=== PATIENT | male | born 1930 | race Caucasian/White ===

== ENCOUNTER 2016-07-06 10:15 | Inpatient (IN) | payer MEDICARE ==
[2016-07-06] MEDS ORDERED: Ondansetron TAB* 4 MG PO PRN (19:00)
[2016-07-06] MEDS ORDERED: Acetaminophen TAB* 325 MG PO PRN ×2 (19:00→19:04)
[2016-07-06] MEDS ORDERED: diPHENhydraMINE PO* 25 MG PO PRN (19:00)
[2016-07-06] MEDS ORDERED: Meclizine TAB* 12.5 MG PO PRN (19:03)
[2016-07-06] MEDS ORDERED: Melatonin (NF) 3 MG TAB PO PRN (21:08)
[2016-07-06] MEDS: Tamsulosin CAP* 0.4 MG PO SCH (21:24)
[2016-07-06] MEDS: traZODone TAB* 50 MG TAB PO PRN (21:26)
[2016-07-06] MEDS: Metoprolol Succinate XL TAB* 25 MG PO SCH (21:38)
[2016-07-06] MEDS ORDERED: NS 0.9% 500 ML* 500 ML IV ONE (23:15)
[2016-07-07 06:40] LABS: Hematocrit 25 % (42-52); Hemoglobin 8.5 g/dl (14.0-18.0); Mean Corpuscular HGB Conc 33 g/dl (31-36); Mean Corpuscular Hemoglobin 30 pg (27-31); Mean Corpuscular Volume 90 fL (80-94); Mean Platelet Volume 8 um3 (7.4-10.4); Red Blood Count 2.82 10^6/ul (4.0-5.4); Red Cell Distribution Width 17 % (10.5-15); White Blood Count 0.6 10^3/ul (3.5-10.8)
[2016-07-07 06:48] LABS: Comments Flag Yes
[2016-07-07 06:50] LABS: Add Diff/Slide Review? Manual Diff Added
[2016-07-07 06:51] LABS: BUN/Creatinine Ratio 25.8 (8-20); Calcium 8.7 mg/dL (8.6-10.3); EGFR African American 99.8 (>60); EGFR Non-African American 77.6 (>60); Magnesium 1.5 mg/dL (1.9-2.7); Potassium 4.6 mmol/L (3.5-5.0)
[2016-07-07] MEDS: Metoprolol Succinate XL TAB* 25 MG PO SCH ×2 (08:37→21:55)
[2016-07-07] MEDS: Omeprazole CAP* 20 MG PO SCH (08:37)
[2016-07-07] MEDS: TESTOSTERONE TOPICAL SCH (08:38)
[2016-07-07] MEDS ORDERED: Magnesium Sulf 4 GM/100 ML IV* 4,000 MG/100 ML BAG IVPB ONE (10:30)
[2016-07-07] MEDS ORDERED: Acetaminophen TAB* 325 MG PO ONE (13:00)
[2016-07-07] MEDS ORDERED: diPHENhydraMINE PO* 25 MG PO ONE (13:00)
[2016-07-07] MEDS: Atorvastatin* 10 MG TAB PO SCH (18:19)
[2016-07-07] MEDS: Tamsulosin CAP* 0.4 MG PO SCH (21:55)
[2016-07-07] MEDS: traZODone TAB* 50 MG TAB PO PRN (22:11)
[2016-07-08 08:08] LABS: Hematocrit 28 % (42-52); Hemoglobin 9.2 g/dl (14.0-18.0); Mean Corpuscular HGB Conc 34 g/dl (31-36); Mean Corpuscular Hemoglobin 30 pg (27-31); Mean Corpuscular Volume 91 fL (80-94); Mean Platelet Volume 9 um3 (7.4-10.4); Red Blood Count 3.03 10^6/ul (4.0-5.4); Red Cell Distribution Width 17 % (10.5-15); White Blood Count 0.9 10^3/ul (3.5-10.8)
[2016-07-08 08:10] LABS: Add Diff/Slide Review? Slide Review Added; Comments Flag Yes
[2016-07-08 09:04] LABS: Calcium 8.5 mg/dL (8.6-10.3); EGFR African American 91.8 (>60); EGFR Non-African American 71.4 (>60); Magnesium 1.8 mg/dL (1.9-2.7); Potassium 4.6 mmol/L (3.5-5.0)
[2016-07-08] MEDS: Allopurinol TAB* 300 MG PO SCH (10:26)
[2016-07-08] MEDS: Omeprazole CAP* 20 MG PO SCH (10:26)
[2016-07-08] MEDS: Metoprolol Succinate XL TAB* 25 MG PO SCH ×2 (10:26→22:35)
[2016-07-08] MEDS: TESTOSTERONE TOPICAL SCH (10:31)
--- NOTE | 2016-07-08 11:52 | RAD ---
HISTORY: Status post fall, chest pain COMPARISONS: CT dated June 09, 2016 VIEWS: 4, Frontal and oblique views of the left hemithorax. FINDINGS: There is diffuse osteopenia. There is a nondisplaced fracture of the left seventh rib, with probable nondisplaced fractures of the left eighth and ninth ribs. Pleural calcifications are noted. There is a probable small left apical pneumothorax. IMPRESSION: NONSPECIFIC FRACTURES OF THE LEFT HEMITHORAX WITH PROBABLE SMALL LEFT APICAL PNEUMOTHORAX. PRELIMINARY FINDINGS WERE DISCUSSED WITH LON, THE NURSE CARING FOR THE PATIENT AT APPROXIMATELY 1148 A.M. ON JULY 08, 2016.
[2016-07-08] MEDS: Atorvastatin* 10 MG TAB PO SCH (16:36)
--- NOTE | 2016-07-08 22:20 | DS ---
DISCHARGE SUMMARY: DATE OF ADMISSION: 07/06/16 DATE OF DISCHARGE: 07/08/16 PRINCIPAL DIAGNOSES: 1. Chest pain presumably secondary to severe anemia, chemotherapy induced. 2. Pancytopenia, chemotherapy induced. 3. Lung cancer history, undergoing active chemotherapy. OTHER PERTINENT HISTORY: Includes: 1. History of coronary artery disease. 2. Hyperlipidemia. 3. Hypertension. 4. Right leg DVT in June 2016. 5. History of gout. 6. Benign prostatic hypertrophy. DISCHARGE MEDICATIONS: Will include: 1. Flomax 0.4 mg p.o. at bedtime. 2. Zocor 20 mg daily. 3. Zofran 4 mg every 4 hours as needed for nausea. 4. Prilosec 20 mg p.o. daily. 5. Toprol-XL 25 mg p.o. b.i.d. 6. Antivert 12.5 mg p.o. t.i.d. as needed for dizziness. 7. Allopurinol 300 mg p.o. daily. 8. Tylenol as needed for fever or pain 650 mg every 4 hours. 9. The patient also takes melatonin [id number] at 3 mg p.o. at bedtime as needed 10. 50 mg topically daily as needed. HOSPITAL COURSE: The patient was admitted to the hospital with pancytopenia secondary to chemotherapy and found to be anemic for which he required 3 units of packed red blood cells. In addition, he had a platelet count of less than 50 at 29 and had been on Lovenox therapy for his DVT, which was discontinued. In addition, he was neutropenic; however, had not developed any specific fever throughout the course of his stay with a maximum temperature of 99.4 and did not require any specific panculturing or antibiotic therapy. His vital signs remained stable and afebrile throughout the course of his stay and blood pressure was stable on the day of his discharge at 141/68, pulse rate 85, respiratory rate 18, O2 sat was 91, and he typically uses 2 L of oxygen nasal cannula at home. On the day of his discharge, the patient did report that he had left chest pain and it has been since he had his fall approximately 6 weeks ago, though it was worse on the day of his discharge. Rib x-rays were obtained on the left side and found to have 2 fractured ribs at the left 8th and 9th ribs with pleural calcifications noted. There was a left apical pneumothorax also reported, which necessitated a surgical review in consult to see if there were any surgical needs to intervene with this pneumothorax. I spoke briefly with Dr. Velez and Evangelist Ott, who felt that the pneumothorax at this point in time was stable and would need close observation. On the day of his discharge, the patient continues to be neutropenic with a white blood cell count escalating at 0.9, hemoglobin 9.2, and hematocrit 28, platelet count 23,000. We will continue to hold his Lovenox until his pancytopenia resolves from his chemotherapy. He will follow up on Wednesday for a repeat CBC and nurse visit. In addition, he will follow up in [address] Abdullahi, status post chemotherapy or sooner if needed. The patient has been instructed to call with any fever or chills as he is pancytopenic. We also arranged for him to have nurse visit on a daily basis secondary to being 87 years old and he continues to remain pancytopenic until his blood counts return. KASSANDRA SILVER [id number]/[facility] #: [id number] ZAC
[2016-07-08] MEDS: traZODone TAB* 50 MG TAB PO PRN (22:35)
[2016-07-08] MEDS: Tamsulosin CAP* 0.4 MG PO SCH (22:35)
[2016-07-09] MEDS: TESTOSTERONE TOPICAL SCH (09:34)
[2016-07-09] MEDS: Metoprolol Succinate XL TAB* 25 MG PO SCH ×2 (09:34→22:34)
[2016-07-09] MEDS: Omeprazole CAP* 20 MG PO SCH (09:34)
[2016-07-09] MEDS: Allopurinol TAB* 300 MG PO SCH (09:34)
[2016-07-09 11:15] LABS: Hematocrit 26 % (42-52); Hemoglobin 8.8 g/dl (14.0-18.0); Mean Corpuscular HGB Conc 33 g/dl (31-36); Mean Corpuscular Hemoglobin 30 pg (27-31); Mean Corpuscular Volume 90 fL (80-94); Mean Platelet Volume 9 um3 (7.4-10.4); Red Blood Count 2.94 10^6/ul (4.0-5.4); Red Cell Distribution Width 17 % (10.5-15); White Blood Count 0.5 10^3/ul (3.5-10.8)
[2016-07-09 11:16] LABS: Comments Flag Yes
[2016-07-09 11:17] LABS: Add Diff/Slide Review? Slide Review Added
[2016-07-09] MEDS: Atorvastatin* 10 MG TAB PO SCH (17:10)
[2016-07-09] MEDS: traZODone TAB* 50 MG TAB PO PRN (22:34)
[2016-07-09] MEDS: Tamsulosin CAP* 0.4 MG PO SCH (22:34)
[2016-07-10 07:57] VITALS: BP 120/59
[2016-07-10] MEDS: Omeprazole CAP* 20 MG PO SCH (09:40)
[2016-07-10] MEDS: Metoprolol Succinate XL TAB* 25 MG PO SCH (09:40)
[2016-07-10] MEDS: Allopurinol TAB* 300 MG PO SCH (09:40)
[2016-07-10] MEDS: TESTOSTERONE TOPICAL SCH (09:40)
--- NOTE | 2016-07-10 11:09 | PN ---
Progress Note - Progress Note SOAP: Subjective: []Feeling OK, still weak and tired. States understanding of need for [facility] , though is frustrated. Denies pain, sore throat, worsening cough, fevers, night sweats, chills, and any wounds. Per pt. normal BMs and UO. Medications: Acetaminophen (Tylenol Tab*) 650 mg PO Q4H PRN PRN Reason: FEVER/PAIN Last Admin: 07/10/16 09:40 Dose: 650 mg Allopurinol (Zyloprim Tab*) 300 mg PO DAILY [facility] Last Admin: 07/10/16 09:40 Dose: 300 mg Atorvastatin Calcium (Lipitor*) 10 mg PO 1700 [facility] Last Admin: 07/09/16 17:10 Dose: 10 mg Meclizine HCl (Antivert Tab*) 12.5 mg PO TID PRN PRN Reason: DIZZINESS Last Admin: 07/06/16 21:23 Dose: 12.5 mg Melatonin (Melatonin (Nf)) 3 mg PO BEDTIME PRN PRN Reason: SLEEP Last Admin: 07/08/16 23:04 Dose: 3 mg Metoprolol Succinate (Toprol Xl Tab*) 25 mg PO BID [facility] Last Admin: 07/10/16 09:40 Dose: 25 mg Omeprazole (Prilosec Cap*) 20 mg PO DAILY [facility] Last Admin: 07/10/16 09:40 Dose: 20 mg Ondansetron HCl (Zofran Tab*) 4 mg PO Q4H PRN PRN Reason: NAUSEA/VOMITING Tamsulosin HCl (Flomax Cap*) 0.4 mg PO BEDTIME [facility] Last Admin: 07/09/16 22:34 Dose: 0.4 mg Testosterone (Androgel (Nf)) 50 mg TOPICAL DAILY [facility] Last Admin: 07/10/16 09:40 Dose: Not Given Trazodone HCl (Desyrel Tab*) 50 mg PO BEDTIME PRN PRN Reason: SLEEP Last Admin: 07/09/16 22:34 Dose: 50 mg Objective: [] Vital Signs Temp Pulse Resp BP Pulse Ox 98.4 F 82 16 120/59 94 07/10/16 07:30 07/10/16 07:30 07/10/16 07:30 07/10/16 07:30 07/10/16 07:30 A&Ox3, EOMI, PERRLA HRR, murmur noted LS clear bilat., resp. even and non-labored ++BS, abd. soft and non-tender +PP=bilat., no edema noted Laboratory Results - last 24 hr 07/09/16 10:00 WBC 0.5 L RBC 2.94 L Hgb 8.8 L Hct 26 L MCV 90 MCH 30 MCHC 33 RDW 17 H Plt Count 18 L MPV 9 Neut % (Auto) 1.6 L Lymph % (Auto) 84.1 H Dade % (Auto) 9.3 H Eos % (Auto) 4.8 Baso % (Auto) 0.2 Absolute Neuts (auto) 0 L Absolute Lymphs (auto) 0.4 L Absolute Monos (auto) 0 Absolute Eos (auto) 0 Absolute Basos (auto) 0 Absolute Nucleated RBC Not Reportable Nucleated RBC % Not Reportable Labs today pending. Assessment: []85 yo with SCLC s/p 3 cycles of Carboplatin AUC 6 D1 and Etoposide 100 mg/m2 D -3 ([id number]) admitted 3 days ago with pancytopenia and significant weakness. Slow improvement s/p 1 unit PRBC, however significant weakness requiring rehabilitation. He still has pancytopenia but without fevers or bleeding and is ready for d/c to rehab. Plan: []1. Weakness: d/c to subacute rehab, today if possible 2. SCLC: chemotherapy to due 07/15, however will delay x1 week and f/u with Dr. Abdullahi 07/20 to determine if tx. can resume with C4 with dose reductions. 3. Pancytopenia: check labs today prior to d/c to determine need for transfusion , neutropenic and bleeding precautions required.
[2016-07-10 11:25] LABS: Hematocrit 27 % (42-52); Hemoglobin 9.1 g/dl (14.0-18.0); Mean Corpuscular HGB Conc 34 g/dl (31-36); Mean Corpuscular Hemoglobin 31 pg (27-31); Mean Corpuscular Volume 91 fL (80-94); Mean Platelet Volume 11 um3 (7.4-10.4); Red Blood Count 2.97 10^6/ul (4.0-5.4); Red Cell Distribution Width 16 % (10.5-15); White Blood Count 0.7 10^3/ul (3.5-10.8)
[2016-07-10 11:27] LABS: Add Diff/Slide Review? Slide Review Added; Comments Flag Yes
--- NOTE | 2016-07-11 07:27 | DS ---
DISCHARGE SUMMARY: DATE OF ADMISSION: 07/07/16 He was seen on 07/06/16 for OBV, full admit on 07/07/16. DATE OF DISCHARGE: 07/10/16 DISCHARGE DIAGNOSES: 1. Pancytopenia: Secondary to chemotherapy. 2. Weakness: Likely deconditioning related to chemotherapy and pancytopenia. 3. 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 4. Coronary artery disease: Stable. 5. Benign prostatic hypertrophy: On Flomax. 6. Hypertension: Stable on current meds. DISCHARGE MEDICATIONS: 1. Trazodone 50 mg p.o. q.h.s. p.r.n. sleep. 2. Flomax 0.4 mg p.o. q.h.s. 3. Omeprazole 20 mg p.o. daily. 4. Acetaminophen 650 mg p.o. q.4 hours p.r.n. pain or fever. *Call for any fever*. 5. Simvastatin 20 mg p.o. q. 5 p.m. 6. Meclizine 12.5 mg p.o. t.i.d. p.r.n. dizziness. 7. Metoprolol 25 mg p.o. b.i.d. 8. Allopurinol 300 mg p.o. daily. 9. Ondansetron 4 mg p.o. q.4 hours p.r.n. nausea or vomiting. 10. *Lorazepam on hold due to low platelets*. DISCHARGE SUMMARY: Please see admission note for full H and P; however, briefly, Mr. Mcgregor is well- known to our service due to his unfortunate diagnosis of small- cell lung cancer. He has received a total of three cycles of carbo/etoposide. Following the second cycle, he did require an admission f or febrile neutropenia related to pneumonia. Plan at that time was for 20% dose reduction; however, he received full dose with cycle 3 and had subsequent pancytopenia. He was seen in the office on 0 07/06/16 in followup to treatment on 06/24/16 through 06/26/16. While in the office, he was very weak with orthostatic hypotension. Minimal improvement with normal saline bolus. He had no obvious inf ections at that time and did not develop any fevers. However, with need for transfusions and his si gnificant weakness, a decision was made for an admission to the hospital. Over the next 3 days, dur ing his inpatient stay, Mr. Mcgregor remained neutropenic, but without fevers. He developed no signs o r symptoms of infection and his monitoring cultures done in the office were all negative. During admission, he received a total of one single-donor pack platelets and 3 units of packed red blood cells. Today, Mr. Mcgregor feels well and has no specific complaints. During this admission, Mr. Gertrude pantoja received a rib x-ray on the due to point tenderness and complaint of pain along the left ribs . This revealed a small pneumothorax. It was evaluated by Surgery and felt not to require interven tion. Plan initially was for Mr. Mcgregor to go home; however, with workup for discharge it was found that Mr. Mcgregor is extremely weak and he did not pass a PT evaluation. Plan has been made, therefore , for Mr. Mcgregor to go to a intermediate facility for subacute rehab. He has been offered a bed a [facility] and is agreeable to this. He is frustrated at his need, but understands his weakness an d deconditioning related to chemotherapy. Mr. Mcgregor will be discharged this afternoon to [facility] with plan for followup with Dr. Abdullahi on 07/20/16. Plan of care was review ed with Mr. Mcgregor who denies further questions and states good understanding. He had labs done toda y which showed improvement in his counts, very slow rise in his neutropenia, and stable thrombocytop enia, without bleeding. He will be instructed on neutropenic precautions as well as bleeding precau tions, as well as the staff at intermediate [facility] regarding the same issues. He will have rep eat labs in one week on 07/17/16, and followup as previously mentioned. TIME SPENT: Greater than 40 minutes were spent, with greater than 50% in face-to- face counseling. HAMMAD MCKINNON, OSCAR [id number]/[facility] #: [id number]
== END 2016-07-10 14:45 | DRG 809 ==
LOC: MED 10:15 → INTOOBSV 18:41 → MED 18:41 → OBSVTOIN 07-07 10:15
PROVIDERS: ADMIT Internal Medicine Hematology & Oncology; ATTEND Internal Medicine Hematology & Oncology
PROC: 30233N1 Transfusion of Nonautologous Red Blood Cells into Peripheral Vein, Percutaneous Approach (ICD-10-PCS; principal; 2016-07-07)
PROC: 30233R1 Transfusion of Nonautologous Platelets into Peripheral Vein, Percutaneous Approach (ICD-10-PCS; 2016-07-07)
DX: D61.810 Antineoplastic chemotherapy induced pancytopenia (principal); C34.90 Malignant neoplasm of unspecified part of unspecified bronchus or lung; S27.0XXA Traumatic pneumothorax, initial encounter; S22.32XA Fracture of one rib, left side, initial encounter for closed fracture; T45.1X5A Adverse effect of antineoplastic and immunosuppressive drugs, initial encounter; Y92.9 Unspecified place or not applicable; R62.7 Adult failure to thrive; Z88.8 Allergy status to other drugs, medicaments and biological substances; N40.0 Benign prostatic hyperplasia without lower urinary tract symptoms; I25.10 Atherosclerotic heart disease of native coronary artery without angina pectoris; E78.5 Hyperlipidemia, unspecified; I10 Essential (primary) hypertension; Z86.718 Personal history of other venous thrombosis and embolism; M10.9 Gout, unspecified; W19.XXXA Unspecified fall, initial encounter
CPT/HCPCS: 1036F; 36415; 36592; 80048; 80053; 83735; 85025; 85060; 86850; 86900; 86901; 86905; 86922; 94760; 96360; 96361; 99212; 99214; 99232; 99239; A9270-GY; G0378; G0463; G8427; J3475; P9035; P9040

== ENCOUNTER 2016-11-09 09:08 | Inpatient (IN) | payer MEDICARE ==
[2016-11-09] MEDS ORDERED: NS 0.9% 1000 ML* 1,000 ML IV ONE (09:54)
[2016-11-09 10:34] LABS: Hematocrit 25 % (42-52); Hemoglobin 8.3 g/dl (14.0-18.0); Mean Corpuscular HGB Conc 33 g/dl (31-36); Mean Corpuscular Hemoglobin 33 pg (27-31); Mean Corpuscular Volume 100 fL (80-94); Mean Platelet Volume 9 um3 (7.4-10.4); Red Blood Count 2.53 10^6/ul (4.0-5.4); Red Cell Distribution Width 16 % (10.5-15); White Blood Count 11.4 10^3/ul (3.5-10.8)
[2016-11-09 11:05] LABS: Albumin 2.9 g/dL (3.2-5.2); BUN/Creatinine Ratio 43.4 (8-20); EGFR African American 68.2 (>60); EGFR Non-African American 53.1 (>60); Globulin 2.7 g/dL (2-4); Potassium 4.8 mmol/L (3.5-5.0); Total Bilirubin 0.4 mg/dL (0.2-1.0); Total Protein 5.6 g/dL (6.4-8.9)
[2016-11-09] MEDS ORDERED: Iodixanol* (CONTRAST) 320 MG/ML 100 ML SDV IV ONE (12:13)
--- NOTE | 2016-11-09 13:03 | RAD ---
INDICATION: Chest pain. Short of breath. Evaluate for pulmonary embolus. Lung carcinoma. COMPARISON: CT chest abdomen August 10, 2016 TECHNIQUE: Axial source images were obtained from the thoracic inlet to the hemidiaphragms following administration of 69 mL Visipaque [address] angiographic technique was utilized. Coronal and sagittal reconstructed images were acquired. CHEST FINDINGS: Neck/thyroid: The visualized neck to include the thyroid appear normal. Chest wall: There are no acute abnormalities of the bony thorax or chest wall. There is no supraclavicular, infraclavicular, or axillary lymphadenopathy. Lungs : There are now lung parenchymal metastasis in the lingula and left lung base measuring up to 2.6 cm. There are smaller pulmonary parenchymal masses in the left upper lobe. Extensive pleural and diaphragmatic plaques are compatible with prior occupational exposure. There are chronic interstitial changes. Cardiomediastinal structures: There is no CT evidence of acute pulmonary embolic disease. The heart is enlarged with a mild interval increase in size. There are coronary artery calcifications. There is no pericardial effusion. There is extensive, confluent mediastinal adenopathy with a conglomerate lymph node mass in the aorticopulmonary window measuring up to 6.2 cm whereas formerly there is a 1.7 cm aorticopulmonary window lymph node Pleura : Pleural plaques as noted above. There are also broad-based [place] parenchymal lesions. Other: Early arterial phase imaging shows a least one new hepatic lesion near the dome measuring 1.7 cm consistent with a metastasis. There are likely additional lesions.. IMPRESSION: 1. No CT evidence of acute pulmonary embolic disease. 2. There are now pulmonary parenchymal metastasis. 3. Extensive, progressive, confluent mediastinal lymphadenopathy. 4. Hepatic metastasis. 5. Calcified pleural and diaphragmatic lesions consistent with prior occupational exposure.
[2016-11-09] MEDS ORDERED: Acetaminophen TAB* 325 MG PO PRN (13:10)
[2016-11-09] MEDS ORDERED: Pantoprazole IV* 40 MG IV ONE (13:10)
[2016-11-09] MEDS ORDERED: Ondansetron INJ* 2 MG/ML VIAL IV PRN (13:10)
[2016-11-09] MEDS ORDERED: NS 0.9% 1000 ML* 1,000 ML IV SCH (13:15)
[2016-11-09] MEDS ORDERED: Norepinephrine 16MCG/ML IVPRE* 4,000 MCG/250 ML BAG IV ONE (14:11)
[2016-11-09] MEDS ORDERED: Octreotide Acetate* 50 MCG in NS 0.9% 50 ML* 50 ML IVPB ONE (14:13)
[2016-11-09] MEDS: Pantoprazole IV* 80 MG in NS 0.9% 250 ML* 250 ML IVPB SCH ×2 (14:33→23:43)
[2016-11-09 14:36] LABS: Comments Flag Yes; Hematocrit 16 % (42-52)
[2016-11-09 14:39] LABS: Hemoglobin 5.4 g/dl (14.0-18.0)
[2016-11-09] MEDS ORDERED: NS 0.9% 1000 ML* 3,000 ML IV ONE (15:28)
[2016-11-09] MEDS ORDERED: fentaNYL* 50 MCG/ML 2 ML VIAL (100 MCG VIAL) ONE (15:39)
[2016-11-09] MEDS ORDERED: Midazolam* 1 MG/ML 10 ML VIAL (10 MG) ONE (15:39)
--- NOTE | 2016-11-09 16:33 | HP ---
HISTORY AND PHYSICAL: DATE OF ADMISSION: 11/09/16 PRIMARY CARE PROVIDER: Dr. Goodrich. ATTENDING PHYSICIAN WHILE IN THE HOSPITAL: Dr. Valadez* (this report is being dictated by Easton Casas NP) CHIEF COMPLAINT: 1. Weakness, not feeling well. 2. Dyspnea on exertion. HISTORY OF PRESENT ILLNESS: Mr. Mcgregor is an 86-year-old male patient who comes into the ER today stating that he in the last couple of days has been feeling weak, really fatigued. He had been feeling quite well after finishing up his chemo back in June. Unfortunately last night, he noticed a black tarry stool x1 but he really was not sure what to make of it. He actually took some Aleve yesterday and the day before because he had been aching, not really feeling well and he thought may be this would help him. He denied any fevers or chills or any nausea or vomiting. He states that he was not having any chest discomfort but he states that his stomach just felt off. He states that he took some again Aleve, which he normally does not take routinely and he came into the hospital to be evaluated. In the ED here, it was noted that he appeared to have tarry stools in addition to this but he also appeared to be a little bit more anemic, so we were asked to evaluate for admission. PAST MEDICAL HISTORY: Significant for: 1. Coronary artery disease. 2. Aortic stenosis. 3. Hypertension. 4. History of MD. 5. Skin cancer. 6. Gout. 7. Arthritis. 8. History of lung cancer. PAST SURGICAL HISTORY: 1. He has had a CABG. 2. He has had a cardiac catheterization. 3. Hernia repair. HOME MEDICATIONS: According to the list that he gave us includes, 1. Flomax 0.8 mg p.o. at bedtime. 2. Zocor 20 mg p.o. at 1700 hours. 3. Zofran 4 mg every 4 hours as needed. 4. Prilosec 20 mg daily. 5. Metoprolol 25 mg p.o. b.i.d. 6. Allopurinol 300 mg daily. 7. Tylenol 650 mg p.o. every 4 hours as needed. ALLERGIES TO MEDICATIONS: No known drug allergies. FAMILY HISTORY: His mother had a history of brain tumor. Father had a history of kidney cancer. SOCIAL HISTORY: He is a former smoker. He does not drink alcohol. His surrogate decision maker is his girlfriend Sharon. REVIEW OF SYSTEMS: There is no documented fever. He denied having any significant weight change. There was no double vision. He denies having any ear discharge. There was no rhinorrhea. No sore throat. No thyroid enlargement. He denied having any chest pain but there was dyspnea on exertion. He denies having any abdominal pain. No nausea now. No vomiting. No dysuria, no frequency. There was no loss of conscious. No pruritus. No skin ulcerations. Review of 14 systems was completed, all others negative. PHYSICAL EXAMINATION GENERAL: Mr. Mcgregor is an 86-year-old male patient. He is chronically ill- appearing. He is sitting in the ER stretcher. He does not appear to be in any acute distress. VITAL SIGNS: Blood pressure of 137/54, pulse of 75, his respirations were 18, O2 sat was 90-92%, his temperature was 97.8. HEENT: Head is atraumatic and normocephalic. Eyes: EOMs are intact. Sclerae anicteric and not pale. Throat: Oral mucosa appears to be dry. No oropharyngeal erythema. NECK: Supple. LUNGS: Clear to auscultation. No wheezes, rales or rhonchi. HEART: Sounds S1 and S2. Regular rate and rhythm. No murmurs, rubs, or gallops. ABDOMEN: Soft, flat, nontender. Bowel sounds present. RECTAL: Exam did reveal black tarry stool. EXTREMITIES: Pulses are 2+ throughout. Able to move all four extremities. 5/ 5 strength. SKIN: Intact. NEUROLOGIC: He is awake, alert, and oriented x3. Tongue midline. Records Management Director are equal. No gross focal deficits. LABORATORY DATA: Today revealed a WBC of 11.4, RBC of 2.53, hemoglobin of 8.3 , hematocrit of 25, platelet count of 120. The INR was 1.01, PTT of 29.0. Sodium is 137, potassium 4.8, chloride of 105, bicarb 28, BUN was 56, creatinine of 1.29, glucose 122, calcium 9.0, total bilirubin 0.14, AST 14, ALT 8, alk phos 51. He did have a EKG obtained today. EKG showed a normal sinus rhythm with LVH and T-wave inversions V4, 5, and 6. I reviewed it with previous EKG, he has had the inversions in the past like this but these T-wave inversions are a little bit more pronounced now. He certainly does have an intraventricular conduction delay. He had a CT of the chest done today, which showed no evidence of acute pulmonary embolic disease. There is no new pulmonary parenchymal metastasis, extensive progressive confluent mediastinal lymphadenopathy, hepatic metastasis, calcified pleural and diaphragmatic lesions consistent with a prior occupational exposure. Old medical records were reviewed. ASSESSMENT AND PLAN: Mr. Mcgregor is an 86-year-old male patient coming into the ER today with complaints of weakness, not feeling well, and black stools. On evaluation, there was concern for gastrointestinal bleed. He will be admitted under inpatient status, 1. Gastroesophageal bleed. I suspect this is an upper gastrointestinal bleed, probably from gastritis or possibly an ulcer. Dr. Jack is on the case. The plan at this point, I am actually going to hold off transfusion, his H and H is 8.3, I suspect this is probably going to go down more, but I want to get serial H and Hs, we will put 2 IVs and he has been typed and screened. We will give him PRBCs if he needs them. If he falls below 7, I probably again would go ahead and transfuse him if here. He does fall again with the next H and H, we will transfuse, which I am anticipating he may. Put him on a Protonix drip, 2 saline locks and we will follow him closely. He appears to be hemodynamically stable. His blood pressure is stable and he is not tachycardic. 2. Hypoxia. Again, it is noted that his O2 sats were like 90 to 92%. He has been feeling week. He does have a little bit of white count. I want to make sure there was not any underlying pneumonia, possibly pulmonary embolism although this is less likely. So, I did go ahead and ordered the CTA of the chest. He was to have a CTA of the chest tomorrow and it did ultimately reveal that he has new metastasis, which I did touch base with Dr. Alcala about, who will be evaluating the patient tomorrow but ultimately we need to address the acute issue of the gastrointestinal bleed and Dr. Alcala can followup with the new lung lesions. For his coronary artery disease, I am going to go ahead and continue his beta-suzanna but I have changed it to the immediate release form and we will monitor him. 3. Aortic stenosis. We need to monitor his blood pressure. I would like to kind of keep it on the higher side. 4. Hypertension. We will monitor. I did continue the Lopressor with hold parameters. 5. History of skin cancer. Follow up with primary. 6. Gout. Holding the allopurinol for now. 7. Arthritis, p.r.n. Tylenol is ordered. 8. History of lung cancer. Again with new CT findings. I did touch base with Dr. Alcala, he will touch base with Dr. Abdullahi tomorrow to evaluate, but most likely again we need to treat the underlying acute issue, which is the GI bleed and then this would need to be addressed in the outpatient setting. 9. DVT prophylaxis. He will be placed on SCDs. 10. Code status: Full code. 11. Fluid, electrolyte, nutrition. He will have clear liquid diet and n.p.o. after midnight. TIME SPENT: Time spent on the admission was approximately 60 minutes, greater than half time was spent [id number] with the patient obtaining my history and physical; other half the time was spent going over the plan of care with the patient and implementing the plan of care. I discussed the plan of care with my attending; Dr. Valadez; she is in agreement. EASTON CASAS NP CC: Dr. Goodrich; Dr. Alcala; Dr. Abdullahi; Dr. Jack* [id number]/[facility] [place] #: [id number] [facility] CENTERNicole
[2016-11-09] MEDS ORDERED: Atorvastatin* 10 MG TAB PO SCH (17:00)
[2016-11-09] MEDS: NS 0.9% 1000 ML* 1,000 ML IV SCH ×2 (17:30→22:36)
--- NOTE | 2016-11-09 17:31 | CONS ---
CONSULTATION: DATE OF CONSULT: 11/09/16 REASON FOR THE CONSULTATION: GI bleed and weakness. NARRATIVE: Mr. Garcia is an 86-year-old gentleman with a history of small cell lung carcinoma, a remote history of coronary artery disease, and CABG, as well as a history of peptic ulcer disease, who presents with progressive weakness and a finding of black stool in the last 24 hours. The patient states that lately he has been feeling generally well with a good appetite, but in the last 48 hours, has felt progressively weaker. This morning, he noticed black stools and for that reason presented to the emergency room at which time he was found to have guaiac- positive melenic stools and anemia with a hemoglobin of 8.3 ( his last hemoglobin from 20 days ago was 11.8). He has had no bowel movements in the ER, has been given IV fluids. He does have a history of peptic ulcer disease. He did undergo an upper endoscopy by Dr. Reese approximately a year and a half ago where multiple gastric ulcers were identified. Biopsies were benign and it was H. pylori negative. The patient does state that recently he has been taking some Aleve for overall pain. The patient also has been prescribed omeprazole; however, only takes it on an as-needed basis. PAST MEDICAL HISTORY: Includes: 1. Small cell lung cancer, status post chemotherapy several months ago. 2. Coronary artery disease, status post CABG about 20 years ago. 3. Hypertension. MEDICATIONS: His admission medicines were: 1. Allopurinol. 2. Metoprolol. 3. Omeprazole. 4. Zocor. 5. Flomax. REVIEW OF SYSTEMS: He denies any rectal bleeding, abdominal pain, dysphagia, heartburn. He denies any jaundice or back pain. PHYSICAL EXAM: He is a pleasant elderly gentleman, appearing comfortable and in no acute distress. Blood pressure is 129/50, heart rate is 83 and regular. He is not pale and is anicteric. His lungs sound clear. His cardiac exam reveals somewhat distant heart sounds, but a regular rhythm. Abdomen is soft without tenderness or distention and bowel sounds normoactive. Extremities reveal no edema. DIAGNOSTIC STUDIES/LAB DATA: Include a white count of 11.1, hemoglobin of 8.3, MCV of 100, platelet count of 120,000. INR 1.01. BUN of 56, creatinine of 1.29. Normal liver panel. The patient also underwent a chest CT angiogram, which I did review, demonstrating probable liver metastases and adenopathy with pulmonary lesions, which do seem new from July 2016 indicative of probable metastatic disease. IMPRESSION: Elderly gentleman with a history of small cell lung carcinoma with a recent CT suggesting progression of disease, now with what seems to be an upper GI bleed in the setting of NSAID use. He does have a prior history of peptic ulcer disease. We will treat him with IV Protonix, monitor his H and H, and plan on performing an upper endoscopy tomorrow which was discussed with the patient. The patient will discuss with his oncologist the findings of the new metastatic changes. CC: Dr. Abdullahi* [id number]/[facility] #: [id number] ZAC
[2016-11-09] MEDS ORDERED: Metoprolol Tartrate TAB* 25 MG PO SCH (21:00)
[2016-11-09] MEDS: Tamsulosin CAP* 0.4 MG PO SCH (21:26)
--- NOTE | 2016-11-10 04:39 | PRO ---
PROCEDURE NOTE: DATE OF PROCEDURE: 11/09/16 - inpatient, room #411-02 PROCEDURE: Upper endoscopy with Endoclip placement x5. MEDICINES USED: Versed 5 mg IV and fentanyl 50 mcg IV. NARRATIVE: Mr. Mcgregor is an 86-year-old gentleman with metastatic small cell lung cancer who presents with GI bleed. He has experienced black stools for 24 hours and had a mild anemia, while in the emergency room he developed high volume hematemesis, melena and did have a reduction in his blood pressure temporarily. He has been resuscitated with fluids and blood and is now undergoing an upper endoscopy in the ICU. I did place an NG tube and irrigated prior to the study to improve views. PROCEDURE IN DETAIL: After the procedure was discussed with the patient, risks and benefits were outlined, written consent was obtained. The patient was placed in the left lateral decubitus position and conscious sedation was administered. A therapeutic upper endoscope was placed down the oropharynx and advanced into the esophagus. The esophagus, stomach, and duodenum to the second to third portion were visualized, the patient tolerated the procedure well, and there were no immediate complications. FINDINGS: The esophagus was normal. There was no evidence of erosive change or varices. Upon entering the stomach, a large clot was seen up in the fundus region, but the remainder of the stomach was relatively clear of debris and clot. Views of the distal body and antrum were notable for normal mucosal pattern without a visible lesion. The pylorus was normal as well and the duodenal bulb to second to third portion had some old stain of blood, but no mucosal lesion. Our attention was then brought back to the area of the clot and we did perform extensive irrigation and suctioning using the BioVac suction device and was able to reduce the size of the clot, but not entirely displace it. I also changed the patient's position to try to have the clot migrate, but again, there were regions of the fundus that we could not adequately see. However, we did see 2 ulcerations, there was an approximately 8 mm ulcer in the proximal body of the stomach with some heaped up edges. It was not actively bleeding; however, there was clot associated with it. There was also a much smaller mucosal defect that looked like perhaps a small ulceration up in the cardia, which also was not actively bleeding. I placed 4 Endoclips on the larger ulcer and 1 on the smaller ulcer and it had good positioning and good endoscopic response. No other lesion was identified. CONCLUSION: Two ulcerations in the proximal aspect of the stomach as described above. Placement of clips applied. RECOMMENDATION: The patient will remain on IV PPI therapy. The usual location of these ulcers may imply them to be more malignant; however, he has been on NSAID's and that certainly could be the cause as well. He will be followed closely in the intensive care unit. CC: Dr. Goodrich; Dr. Abdullahi* [id number]/[facility] #: [id number] [facility]
[2016-11-10] MEDS: NS 0.9% 1000 ML* 1,000 ML IV SCH (05:10)
[2016-11-10 05:41] LABS: Hematocrit 28 % (42-52); Hemoglobin 9.1 g/dl (14.0-18.0); Mean Corpuscular HGB Conc 33 g/dl (31-36); Mean Corpuscular Hemoglobin 30 pg (27-31); Mean Corpuscular Volume 90 fL (80-94); Mean Platelet Volume 9 um3 (7.4-10.4); Red Blood Count 3.05 10^6/ul (4.0-5.4); Red Cell Distribution Width 20 % (10.5-15); White Blood Count 12.2 10^3/ul (3.5-10.8)
[2016-11-10 05:43] LABS: Add Diff/Slide Review? Slide Review Added; Comments Flag Yes
[2016-11-10 05:56] LABS: BUN/Creatinine Ratio 45.9 (8-20); Calcium 7.1 mg/dL (8.6-10.3); EGFR African American 93.7 (>60); EGFR Non-African American 72.9 (>60); Potassium 4.1 mmol/L (3.5-5.0)
[2016-11-10] MEDS: Pantoprazole IV* 80 MG in NS 0.9% 250 ML* 250 ML IVPB SCH (08:48)
[2016-11-10] MEDS: Omeprazole CAP* 20 MG PO SCH ×2 (11:04→21:35)
--- NOTE | 2016-11-10 11:59 | PN ---
Progress Note - Progress Note Note: CRITICAL CARE MEDICINE Date: 11/10/16 Time: 1030 SUBJECTIVE: Patient seen and examined. PHYSICAL EXAM: Vital Signs: Reviewed. Neurologic: awake, comm HEENT: pupils equal. Sclera anicteric. Trachea midline. Cardiovascular: distant, S1 S2 Respiratory: clear bl Abdomen: Soft, maybe mild distention; nt. Extremities: Warm. Access: left fem cvc LABS: Reviewed. IMAGING: Reviewed. MEDICATIONS: Reviewed. ASSESSMENT: 86 M Hemorrhagic shock - recovering. Acute UGIB, with ulcers s/p clipping Acute blood loss anemia - s/p 4 units prbc Metastatic lung ca, with new advancement MARGARET - improved PLAN: doing well. equilibrated post transfusions. no signs of bleeding. convert to bid ppi. GI to f/u. Start clears and advance as tolerating. Look to resume cardiac rx when equilibrated. Onc will f/u as well as re-spread quite concerning. Supportive and preventative care as ordered. SUP: ppi VTE prophylaxis: scds, oob Disposition: to floor later today if he does well with clears Code Status: Full presently Critical Care Time: 25min Jarrell Winters DO
--- NOTE | 2016-11-10 19:19 | ED ---
Ernesto Maurice Anna, scribed for Mario Spain MD on 11/09/16 at 0955 . GI/ HPI - HPI Summary HPI Summary: Patient is an 86 y/o male coming to [facility] presenting with the sudden onset of 3 episodes of melena that began today. The patient reports he has had worsening associated weakness and has had difficulty walking. Denies CP, SOB, and palpitations. He had a colonoscopy 4 years ago. He took an Aspirin and a few Aleve yesterday. His history is significant for HTN, HLD, [place], CABG. Patient medications were reviewed on this visit. - History of Current Complaint Chief Complaint: EDGIBleed Time Seen by Provider: 11/09/16 09:45 Stated Complaint: DIFF WALKING Hx Obtained From: Patient, Family/Conductor Sleeping Car - accompanied by his Onset/Duration: Still Present Timing: Intermittent Severity: Moderate Current Severity: Moderate Pain Intensity: 0 - Additional Pertinent History Primary Care Physician: ELIAS - Allergy/Home Medications Allergies/Adverse Reactions: Allergies Allergy/AdvReac Type Severity Reaction Status Date / Time No Known Allergies Allergy Verified 11/09/16 09:11 PMH/Surg Hx/FS Hx/Imm Hx Endocrine/Hematology History: Reports: Hx Anticoagulant Therapy - asa Denies: Hx Diabetes, Hx Systemic Lupus Erythematosus, Hx Thyroid Disease Cardiovascular History: Reports: Hx Angina, Hx Coronary Artery Disease - 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 PNA. Denies: Hx Asthma, Hx Chronic Obstructive Pulmonary Disease (COPD) GI History: Reports: Hx Gastroesophageal Reflux Disease - PRN MEDICATION FOR, Hx Hiatal Hernia - HX OF, Other GI Disorders - SEE BELOW UNDER COMMENTS History: Reports: Other Problems/Disorders - ENLARGE PROSTATE Denies: Hx Renal Disease Musculoskeletal History: Reports: Hx Arthritis, Hx Gout, Other Musculoskeletal History - GOUT CONTROL WITH MEDS Denies: Hx Rheumatoid Arthritis Sensory History: Reports: Hx Cataracts, Hx Contacts or Glasses Denies: Hx Hearing Aid Opthamlomology History: Reports: Hx Cataracts, Hx Contacts or Glasses Neurological History: Reports: Other Neuro Impairments/Disorders - VERTIGO- STATES COMES AND GOES Denies: Hx Headaches Psychiatric History: Reports: Hx Depression - NO MEDS Denies: Hx Anxiety - Cancer History Cancer Type, Location and Year: 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 lung cancer Hx Chemotherapy: Yes - 06/30/16 - Surgical History Surgery Procedure, Year, and Place: Appendectomy as a teenager. 5 vessel bypass in 1997 with [place]. Skin cancer removed from left ear and back, shoulder [phone]. SKIN CANCER REMOVED TOP OF HEAD, LEFT EAR 2014. 2015 CARDIAC CATHERIZATION,[facility] ingunial hernia=06/30. CELIAC ARTERY TX WITH STENT AUGUST 2015 IN [place] Hx Anesthesia Reactions: Yes - 1997 SLOW TO WAKE AFTER CABG Infectious Disease History: No Infectious Disease History: Reports: Hx Shingles Denies: Hx Tuberculosis, Traveled Outside the [place] in Last 30 Days - Family History Known Family History: Positive: Cardiac Disease - CAD - Social History Lives: With Family Alcohol Use: None Substance Use Type: Reports: None Smoking Status (MU): Former Smoker Type: Cigarettes Amount Used/How Often: 30 YEARS AGO Length of Time of Smoking/Using Tobacco: APPROX 37 YEARS Have You Smoked in the Last Year: No Review of Systems Negative: Palpitations, Chest Pain Negative: Shortness Of Breath Gastrointestinal: Other - melena Positive: Weakness All Other Systems Reviewed And Are Negative: Yes Physical Exam - Summary Physical Exam Summary: VITAL SIGNS: Reviewed. GENERAL: Patient is a fragile male who is lying comfortable in the stretcher. Patient is not in any acute respiratory distress. HEAD AND FACE: No signs of trauma. No ecchymosis, hematomas or skull depressions. No sinus tenderness. EYES: PERRLA, EOMI x 2, No injected conjunctiva, no nystagmus. EARS: Hearing grossly intact. Ear canals and tympanic membranes are within normal limits. MOUTH: Oropharynx within normal limits. NECK: Supple, trachea is midline, no adenopathy, no JVD, no carotid bruit, no c- spine tenderness, neck with full ROM. CHEST: Symmetric, no tenderness at palpation LUNGS: Clear to auscultation bilaterally. No wheezing or crackles. CVS: Regular rate and rhythm, S1 and S2 present, Ejection systolic murmur 2/6 RECTAL: Rectal exam is positive for blood with melena ABDOMEN: Soft, non-tender. No signs of distention. No rebound no guarding, and no masses palpated. Bowel sounds are normal. EXTREMITIES: FROM in all major joints, no edema, no cyanosis or clubbing. NEURO: Alert and oriented x 3. No acute neurological deficits. Speech is normal and follows commands. SKIN: Dry and warm Triage Information Reviewed: Yes Vital Signs On Initial Exam: Initial Vitals Temp Pulse Resp BP Pulse Ox 97.8 F 79 16 115/48 96 11/09/16 09:11 11/09/16 09:11 11/09/16 09:11 11/09/16 09:11 11/09/16 09:11 Vital Signs Reviewed: Yes Diagnostics - Vital Signs Vital Signs Temp Pulse Resp BP Pulse Ox 11/09/16 09:11 97.8 F 79 16 115/48 96 - Laboratory Lab Results: Lab Results 11/09/16 11/09/16 11/09/16 Range/Units 10:18 10:18 10:18 WBC 11.4 H (3.5-10.8) 10^3/ul RBC 2.53 L (4.0-5.4) 10^6/ul Hgb 8.3 L (14.0-18.0) g/dl Hct 25 L (42-52) % MCV 100 H (80-94) fL MCH 33 H (27-31) pg MCHC 33 (31-36) g/dl RDW 16 H (10.5-15) % Plt Count 120 L (150-450) 10^3/ul MPV 9 (7.4-10.4) um3 Neut % (Auto) 82.2 (38-83) % Lymph % (Auto) 9.8 L (25-47) % Shelby % (Auto) 6.4 (1-9) % Eos % (Auto) 1.2 (0-6) % Baso % (Auto) 0.4 (0-2) % Absolute Neuts (auto) 9.4 H (1.5-7.7) 10^3/ul Absolute Lymphs (auto) 1.1 (1.0-4.8) 10^3/ul Absolute Monos (auto) 0.7 (0-0.8) 10^3/ul Absolute Eos (auto) 0.1 (0-0.6) 10^3/ul Absolute Basos (auto) 0 (0-0.2) 10^3/ul Absolute Nucleated RBC 0 10^3/ul Nucleated RBC % 0 INR (Anticoag Therapy) 1.01 (0.89-1.11) APTT 29.0 (26.0-36.3) seconds Sodium 137 (133-145) mmol/L Potassium 4.8 (3.5-5.0) mmol/L Chloride 105 (101-111) mmol/L Carbon Dioxide 28 (22-32) mmol/L Anion Gap 4 (2-11) mmol/L BUN 56 H (6-24) mg/dL Creatinine 1.29 H (0.67-1.17) mg/dL Est GFR ( Amer) 68.2 (>60) Est GFR (Non-Af Amer) 53.1 (>60) BUN/Creatinine Ratio 43.4 H (8-20) Glucose 122 H (70-100) mg/dL Calcium 9.0 (8.6-10.3) mg/dL Total Bilirubin 0.40 (0.2-1.0) mg/dL AST 14 (13-39) U/L ALT 8 (7-52) U/L Alkaline Phosphatase 51 (34-104) U/L Total Protein 5.6 L (6.4-8.9) g/dL Albumin 2.9 L (3.2-5.2) g/dL Globulin 2.7 (2-4) g/dL Albumin/Globulin Ratio 1.1 (1-3) Blood Type Antibody Screen Crossmatch 11/09/16 Range/Units 10:18 WBC (3.5-10.8) 10^3/ul RBC (4.0-5.4) 10^6/ul Hgb (14.0-18.0) g/dl Hct (42-52) % MCV (80-94) fL MCH (27-31) pg MCHC (31-36) g/dl RDW (10.5-15) % Plt Count (150-450) 10^3/ul MPV (7.4-10.4) um3 Neut % (Auto) (38-83) % Lymph % (Auto) (25-47) % Shelby % (Auto) (1-9) % Eos % (Auto) (0-6) % Baso % (Auto) (0-2) % Absolute Neuts (auto) (1.5-7.7) 10^3/ul Absolute Lymphs (auto) (1.0-4.8) 10^3/ul Absolute Monos (auto) (0-0.8) 10^3/ul Absolute Eos (auto) (0-0.6) 10^3/ul Absolute Basos (auto) (0-0.2) 10^3/ul Absolute Nucleated RBC 10^3/ul Nucleated RBC % INR (Anticoag Therapy) (0.89-1.11) APTT (26.0-36.3) seconds Sodium (133-145) mmol/L Potassium (3.5-5.0) mmol/L Chloride (101-111) mmol/L Carbon Dioxide (22-32) mmol/L Anion Gap (2-11) mmol/L BUN (6-24) mg/dL Creatinine (0.67-1.17) mg/dL Est GFR ( Amer) (>60) Est GFR (Non-Af Amer) (>60) BUN/Creatinine Ratio (8-20) Glucose (70-100) mg/dL Calcium (8.6-10.3) mg/dL Total Bilirubin (0.2-1.0) mg/dL AST (13-39) U/L ALT (7-52) U/L Alkaline Phosphatase (34-104) U/L Total Protein (6.4-8.9) g/dL Albumin (3.2-5.2) g/dL Globulin (2-4) g/dL Albumin/Globulin Ratio (1-3) Blood Type A Positive Antibody Screen Negative Crossmatch See Detail Result Diagrams: 11/09/16 14:24 11/09/16 10:18 Lab Statement: Any lab studies that have been ordered have been reviewed, and results considered in the medical decision making process. - EKG 1055 Cardiac Rate: NL - 75 bpm EKG Rhythm: Sinus Rhythm Ectopy: None EKG Interpretation: ST depressions in V4, V5, V6 EKG Comparison: Other - slight change, compared to EKG from 06/09/2016 Re-Evaluation - Re-Evaluation First Eval Re-Evaluation Time: 14:01 Change: Worse Comment: The pt was being transferred to the floor, and then the pt became hypotensive, diaphoretic, and had a near syncopal episode. We rolled the pt back and noticed he was hypotensive. The pt was started on IV fluids boluses in both upper extremities. We also ordered packed RBC since pt had episode of hematemesis. At this point, we started resuscitation. Dr. Ken placed a central line in the left femoral artery. The BP increased to 100/60. Discussed case with Dr. Winters (ICU) who accepts the pt for admission. Discussed case with Dr. Jack (GI) who at this point doesnt recommend further action. GIGU Course/Dx - Course Course Of Treatment: Patient is an 86 y/o male coming to [facility] presenting with the sudden onset of 3 episodes of melena that began today. The patient reports he has had worsening associated weakness and has had difficulty walking. Denies CP, SOB, and palpitations. He had a colonoscopy 4 years ago. He took an Aspirin and a few Aleve yesterday. His history is significant for HTN, HLD, [place], CABG. Patient medications were reviewed on this visit. Assessment/Plan: Labs WNL except WBC of 114, Hgb of 8.3, Hct of 25, BUN of 56, and Creatinine of 1.29. Glucose is 122. Rectal exam reveals the pt has melena. At this point, I discussed the case with Dr. Alcala, who requested the pt to be admitted to the medical unit. I discussed the case with Dr. Valadez, who agrees to accept pt for management. He is hemodynamically stable and A& Ox3. Pt was given IV fluids and one dose of Protonix. - Diagnoses Provider Diagnoses: GI bleed - Physician Notifications Discussed Care Of Patient With: Easton Casas (hospitalist PA) at 1034. Agrees to see patint. Easton Casas (hospitalist PA) at 1148. Recommends calling oncology. Dr. Alcala (oncologist) at 1220. Recommends the patient be admitted to the hospitalist as the patient is not actively receiving chemotherapy. Dr. Valadez (hospitalist) at 1224. Agrees to accept patient for admission. After the patient was admitted and he was being transport to the Floor, I was informed by the nurse that patient was - Critical Care Time Critical Care Time: 30-74 min Discharge - Discharge Plan Condition: Fair Disposition: ADMITTED TO [facility] documentation as recorded by the Ernesto mike Anna accurately reflects the service I personally performed and the decisions made by me, Mario Spain MD.
[2016-11-10] MEDS: Tamsulosin CAP* 0.4 MG PO SCH (21:35)
[2016-11-10] MEDS: Temazepam CAP* 15 MG PO PRN (21:54)
[2016-11-11] MEDS: Omeprazole CAP* 20 MG PO SCH ×2 (07:53→20:06)
[2016-11-11 09:21] LABS: Hematocrit 31 % (42-52); Hemoglobin 10.3 g/dl (14.0-18.0); Mean Corpuscular HGB Conc 33 g/dl (31-36); Mean Corpuscular Hemoglobin 31 pg (27-31); Mean Corpuscular Volume 91 fL (80-94); Red Blood Count 3.39 10^6/ul (4.0-5.4); Red Cell Distribution Width 20 % (10.5-15); White Blood Count 8.2 10^3/ul (3.5-10.8)
[2016-11-11 09:23] LABS: Comments Flag Yes
[2016-11-11 09:26] LABS: Add Diff/Slide Review? Slide Review Added
[2016-11-11 09:39] LABS: BUN/Creatinine Ratio 28.1 (8-20); Calcium 8.2 mg/dL (8.6-10.3); EGFR Non-African American 74.6 (>60); Potassium 3.5 mmol/L (3.5-5.0)
[2016-11-11 09:47] LABS: Mean Platelet Volume 9 um3 (7.4-10.4)
--- NOTE | 2016-11-11 10:32 | PN ---
Progress Note - Progress Note SOAP: Subjective: feels better this am, but weak overall. reports that he got very winded with ambulation. this is new for him. still having black stools, but Hb improving. Objective: Vital Signs Temp Pulse Resp BP Pulse Ox 97.8 F 88 16 155/65 92 11/11/16 07:17 11/11/16 07:17 11/11/16 07:59 11/11/16 07:17 11/11/16 07:17 lying flat in nad perr eomi op moist CTA bl, poor effort though II/ JONATHON soft nt +bs no le edema A+0 x 3, grossly nonfocal Laboratory Results - last 24 hr 11/11/16 11/11/16 08:46 08:46 WBC 8.2 RBC 3.39 L Hgb 10.3 L Hct 31 L MCV 91 MCH 31 MCHC 33 RDW 20 H Plt Count 86 L D MPV 9 Neut % (Auto) 74.3 Lymph % (Auto) 14.2 L Nobles % (Auto) 8.3 Eos % (Auto) 2.9 Baso % (Auto) 0.3 Absolute Neuts (auto) 6.1 Absolute Lymphs (auto) 1.2 Absolute Monos (auto) 0.7 Absolute Eos (auto) 0.2 Absolute Basos (auto) 0 Absolute Nucleated RBC 0.02 Nucleated RBC % 0.2 Sodium 136 Potassium 3.5 Chloride 110 Carbon Dioxide 20 L Anion Gap 6 BUN 27 H Creatinine 0.96 Est GFR ( Amer) 96.0 Est GFR (Non-Af Amer) 74.6 BUN/Creatinine Ratio 28.1 H Glucose 119 H Calcium 8.2 L Assessment: 86 yo M w recurrent small cell lung cancer admitted with a large upper GI bleed from multiple gastric ulcers. Plan: -Hb stable, not surprising that stools continue to be dark -cont PPI BID -advance diet to regular today -replete Kcl PO, check magnesium, likely related to GI losses SOB on exertion: may be from pulm mets. check ambulatory O2 sat PT consult to assess for deconditioning recurrent small cell: will need further palliative chemotherapy, likely next week. will defer to Dr. Abdullahi full code no dvt prophylaxis with recent GI bleed
[2016-11-11 10:49] LABS: Magnesium 1.5 mg/dL (1.9-2.7)
[2016-11-11] MEDS ORDERED: Magnesium Sulf 4 GM/100 ML IV* 4,000 MG/100 ML BAG IVPB ONE (11:30)
[2016-11-11] MEDS ORDERED: Magnesium Sulfate 2 GM IV* 2 GM/50 ML BAG IVPB ONE (11:33)
--- NOTE | 2016-11-11 12:00 | PN ---
Subjective Date of Service: 11/11/16 Interval History: This is an 86 yo gentleman with metastatic lung CA who presented with a GI bleed and subsequent GI hemorrhage. Transferred from ICU yesterday. Patient continues to have melena, but no abd pain, n/v. He is dyspneic with ambulation which is a new symptom for him. No associated cough or chest pain. Objective Active Medications: Acetaminophen (Tylenol Tab*) 650 mg PO Q4H PRN PRN Reason: FEVER/PAIN Magnesium Sulfate (Magnesium Sulf 4 Gm/100 Ml Iv*) 4,000 mg in 100 mls @ 33.333 mls/hr IVPB ONCE ONE Stop: 11/11/16 14:29 Omeprazole (Prilosec Cap*) 20 mg PO BID NICHOLAS Last Admin: 11/11/16 07:53 Dose: 20 mg Ondansetron HCl (Zofran Inj*) 4 mg IV Q6H PRN PRN Reason: NAUSEA Potassium Chloride (Klor Con Er Tab*) 20 meq PO DAILY NICHOLAS Tamsulosin HCl (Flomax Cap*) 0.8 mg PO BEDTIME NICHOLAS Last Admin: 11/10/16 21:35 Dose: 0.8 mg Temazepam (Restoril Cap*) 15 mg PO BEDTIME PRN PRN Reason: INSOMNIA Last Admin: 11/10/16 21:54 Dose: 15 mg Vital Signs: Temp Pulse Resp BP Pulse Ox 97.8 F 88 16 155/65 92 11/11/16 07:17 11/11/16 07:17 11/11/16 07:59 11/11/16 07:17 11/11/16 07:17 Appearance: Well appearing elderly gentleman in NAD Respiratory: Symmetrical Chest Expansion and Respiratory Effort, Clear to Auscultation Cardiovascular: RRR, - - faint murmur appreciated Extremities: No Edema Skin: No Rash or Ulcers Neurological: Alert and Oriented x 3 Result Diagrams: 11/11/16 08:46 11/11/16 08:46 Additional Lab and Data: . Microbiology and Other Data: Microbiology 11/09/16 16:04 Nasal Screen MRSA (PCR)(JUAN) - Final Nasal Mrsa Negative 11/09/16 14:00 Stool Occult Blood (JUAN) - Final Stool Assess/Plan/Problems-Billing Assessment: This is an 86 yo female with metastatic lung CA admitted with GI bleed and subsequent hemorrhagic shock. - Patient Problems (1) Hemorrhagic shock Comment: Resolved Secondary to GI bleed (2) GI bleed Comment: Secondary to gastric ulcer s/p EGD with clipping Hgb stable Cont bid PPI therapy (3) MARGARET (acute kidney injury) Comment: Resolved Secondary to hypovolemia (4) Metastatic cancer to lung Comment: Followed by Dr Abdullahi Patient recently interrupted chemotherapy due to intolerance Plan to resume following discharge per patient report (5) HTN (hypertension) Comment: Resume home metoprolol (6) Hypomagnesemia Comment: Replace IV (7) Full code status (8) DVT prophylaxis Comment: SCDs Status and Disposition: Inpatient. Likely dc tomorrow
[2016-11-11] MEDS: Potassium Chlor TAB* 20 MEQ TAB.ER PO SCH (12:19)
[2016-11-11] MEDS: Metoprolol Succinate XL TAB* 25 MG PO SCH (20:06)
[2016-11-11] MEDS: Tamsulosin CAP* 0.4 MG PO SCH (20:06)
[2016-11-11] MEDS: Temazepam CAP* 15 MG PO PRN (21:27)
[2016-11-12 05:34] LABS: Hematocrit 29 % (42-52); Hemoglobin 9.7 g/dl (14.0-18.0); Mean Corpuscular HGB Conc 33 g/dl (31-36); Mean Corpuscular Hemoglobin 30 pg (27-31); Mean Corpuscular Volume 90 fL (80-94); Mean Platelet Volume 9 um3 (7.4-10.4); Red Blood Count 3.24 10^6/ul (4.0-5.4); Red Cell Distribution Width 19 % (10.5-15); White Blood Count 8.7 10^3/ul (3.5-10.8)
[2016-11-12 05:38] LABS: Add Diff/Slide Review? Slide Review Added; Comments Flag Yes
[2016-11-12 07:23] VITALS: BP 155/71
[2016-11-12] MEDS: Metoprolol Succinate XL TAB* 25 MG PO SCH (07:45)
[2016-11-12] MEDS: Potassium Chlor TAB* 20 MEQ TAB.ER PO SCH (07:45)
[2016-11-12] MEDS: Omeprazole CAP* 20 MG PO SCH (07:45)
--- NOTE | 2016-11-13 01:03 | DS ---
DISCHARGE SUMMARY: DATE OF ADMISSION: 11/09/16 DATE OF DISCHARGE: 11/12/16 PRIMARY CARE PROVIDER: Dr. Juan Goodrich. PRIMARY ONCOLOGIST: Dr. Sp Abdullahi. CONSULTING TRUCK ASSEMBLER: Dr. Delfino Jack. DISCHARGING PROVIDER: KASSANDRA Jacinto. SUPERVISING PHYSICIAN: Dr. Moises Childers.* (DICTATED BY KASSANDRA JACINTO) PRIMARY DISCHARGE DIAGNOSES: 1. Upper gastrointestinal bleed with associated hemorrhagic shock secondary to bleeding gastric ulcer. 2. Acute kidney injury secondary to hypovolemia - now resolved. SECONDARY DISCHARGE DIAGNOSES: 1. Metastatic lung cancer, followed by Dr. Abdullahi with evidence of advancement of disease based on imaging during his hospital stay. 2. Hypertension. DISCHARGE MEDICATIONS: 1. Allopurinol 300 mg p.o. daily. 2. Metoprolol succinate 25 mg p.o. twice daily. 3. Omeprazole 20 mg p.o. twice daily. 4. Zofran 4 mg p.o. q. 4 hours as needed for nausea. 5. Simvastatin 20 mg p.o. daily. 6. Flomax 0.8 mg p.o. at bedtime. Medication Changes: Increase omeprazole to twice daily dosing. HOSPITAL IMAGIN. CTA of the chest demonstrates no PE. There are now pulmonary parenchymal metastases and extensive progressive confluent mediastinal lymphadenopathy with hepatic metastasis and calcified pleural and diaphragmatic lesion. 2. EGD demonstrated 2 large bleeding ulcerations in the antrum of the stomach that required Endoclips for bleeding control. HOSPITAL COURSE: This is an 86-year-old gentleman with previously known metastatic lung cancer followed by Dr. Abdullahi, who had stopped chemotherapy a couple of months ago due to intolerance of side effects. He presented to the emergency department with complaints of weakness. Initial labs demonstrated a hemoglobin of 8.3 g/dL and labs approximately 2 weeks prior demonstrated hemoglobin of 11.8. His stool was positive for occult blood. Patient appeared hemodynamically stable on initial labs, but subsequently became hypotensive and repeat hemoglobin 4 hours from initial showed a drop of nearly 3 g, and the patient was emergently taken to the endoscopy suite where he underwent EGD with Dr. Jack in conjunction with transfusion of a total of 4 units of packed red blood cells. There were 2 ulcers identified both in the antrum of the stomach that were quite deep, the largest required multiple Endoclips to control bleeding. Patient was subsequently transferred to the ICU following EGD, maintained on Protonix drip, and eventually transitioned to oral twice daily PPI therapy. Patient continued to complain of melena throughout his hospital stay, but his hemoglobin remained stable after his initial transfusion, which did not require any additional blood products. He was discharged from the ICU on hospital day 2 and remained stable on the floor. He complained of some mild dyspnea, but no significant associated hypoxia. Patient was previously receiving palliative chemotherapy, and as mentioned above , therapy had been interrupted due to intolerance of the chemo medication. Patient is still interested in pursuing additional palliative options and followed by Dr. Abdullahi. Oncology was involved in his hospital care as well. DISPOSITION AND FOLLOWUP PLAN: Patient is being discharged to home where he lives alone. Referral has been made to visiting nurse service and the patient plans to hire additional home health aides. He is instructed to follow up with his primary care provider within 1 week of discharge and is interested in following up with Dr. Abdullahi in regards to additional treatment options in the future. Medication change includes twice daily PPI therapy and the patient was given explicit instructions to avoid all NSAIDs. KASSANDRA JACINTO CC: Dr. Juan Goodrich; Dr. Abdullahi * [id number]/[facility] #: [id number] MTDD
--- NOTE | 2016-11-14 20:31 | ED ---
Stef Maurice Soohyun, scribed for Cahry Ken MD on 11/09/16 at 1432 . Progress - Progress Note Progress Note: Femoral line placement was performed on this patient by Dr. Ken. Course/Dx - Diagnoses Provider Diagnoses: GI bleed Procedures - Central Line Central Line Lumen: triple Central Line Position: femoral (L) Anesthesia: Lidocaine - 1 % cc's of anesthesia: 4 Central Line Post Position: good blood return The documentation as recorded by the [email or web address] oliveira Soohyun accurately reflects the service I personally performed and the decisions made by , Chary Ken MD.
== END 2016-11-12 10:20 | disposition home health service (06) | DRG 377 ==
LOC: ED 09:08 → MED 13:02 → ICU 14:04 → MED 11-10 14:07
PROVIDERS: ADMIT Hospitalist; ATTEND Hospitalist
PROC: 04HL33Z Insertion of Infusion Device into Left Femoral Artery, Percutaneous Approach (ICD-10-PCS; principal; 2016-11-09)
PROC: 0W3P8ZZ Control Bleeding in Gastrointestinal Tract, Via Natural or Artificial Opening Endoscopic (ICD-10-PCS; 2016-11-09)
PROC: 30253N1 (ICD-10-PCS; 2016-11-09)
DX: K25.4 Chronic or unspecified gastric ulcer with hemorrhage (principal); R57.8 Other shock; N17.9 Acute kidney failure, unspecified; C78.00 Secondary malignant neoplasm of unspecified lung; C78.7 Secondary malignant neoplasm of liver and intrahepatic bile duct; E86.1 Hypovolemia; C80.1 Malignant (primary) neoplasm, unspecified; I95.9 Hypotension, unspecified; I35.0 Nonrheumatic aortic (valve) stenosis; D62 Acute posthemorrhagic anemia; I10 Essential (primary) hypertension; E78.5 Hyperlipidemia, unspecified; K21.9 Gastro-esophageal reflux disease without esophagitis; N40.0 Benign prostatic hyperplasia without lower urinary tract symptoms; M19.90 Unspecified osteoarthritis, unspecified site; M10.9 Gout, unspecified; H26.9 Unspecified cataract; F32.9 Major depressive disorder, single episode, unspecified; R09.02 Hypoxemia; I25.10 Atherosclerotic heart disease of native coronary artery without angina pectoris; Z85.828 Personal history of other malignant neoplasm of skin; Z87.11 Personal history of peptic ulcer disease; Z87.891 Personal history of nicotine dependence; Z82.49 Family history of ischemic heart disease and other diseases of the circulatory system; Z80.51 Family history of malignant neoplasm of kidney; Z80.8 Family history of malignant neoplasm of other organs or systems; I25.2 Old myocardial infarction; Z95.1 Presence of aortocoronary bypass graft; Z87.01 Personal history of pneumonia (recurrent)
CPT/HCPCS: 36415; 71275; 80048; 80053; 82270; 82550; 83735; 85014; 85018; 85025; 85610; 85730; 86850; 86900; 86901; 86922; 87641; 93005; 94760; A9270-GY; J2250; J3010; P9040; Q9967

== ENCOUNTER 2016-12-16 10:50 | Inpatient (IN) | payer MEDICARE ==
[2016-12-16] MEDS ORDERED: NS 0.9% 1000 ML* 1,000 ML IV SCH (11:45)
--- NOTE | 2016-12-16 12:34 | RAD ---
HISTORY: Weakness, chills COMPARISONS: June 09, 2016 VIEWS:1: Single frontal portable view of the chest at 12:03 PM FINDINGS: LINES AND TUBES: None. CARDIOMEDIASTINAL SILHOUETTE: The cardiomediastinal silhouette is normal for portable technique. PLEURA: There are stable calcified pleural plaques LUNG PARENCHYMA: The lungs are clear. ABDOMEN: The upper abdomen is clear. There is no subphrenic gas. BONES AND SOFT TISSUES: The patient is status post median sternotomy. IMPRESSION: STABLE CALCIFIED PLEURAL PLAQUES. NO ACTIVE CARDIOPULMONARY DISEASE
--- NOTE | 2016-12-16 12:38 | RAD ---
INDICATION: Pain and swelling at the right ankle COMPARISON: None. TECHNIQUE: 3 views of the right ankle were obtained. FINDINGS: The bones are normal alignment. Joint spaces appear maintained. No fracture is seen. There is coarse atherosclerotic calcification overlying the posterior tibial artery, anterior tibial artery and pedal arteries. IMPRESSION: 1. NO RADIOGRAPHIC EVIDENCE OF ACUTE BONY ABNORMALITY OF THE RIGHT ANKLE. 2. COARSE ATHEROSCLEROTIC CALCIFICATION OF THE LOWER INFRAPOPLITEAL AND PEDAL ARTERIES. PLEASE CORRELATE TO SIGNS AND SYMPTOMS OF ARTERIAL INSUFFICIENCY. If the patient's symptoms persist, follow-up imaging is recommended.
[2016-12-16 14:20] LABS: Hematocrit 30 % (42-52); Hemoglobin 9.8 g/dl (14.0-18.0); Mean Corpuscular HGB Conc 33 g/dl (31-36); Mean Corpuscular Hemoglobin 31 pg (27-31); Mean Corpuscular Volume 95 fL (80-94); Mean Platelet Volume 9 um3 (7.4-10.4); Red Blood Count 3.15 10^6/ul (4.0-5.4); Red Cell Distribution Width 19 % (10.5-15); White Blood Count 2.3 10^3/ul (3.5-10.8)
[2016-12-16 14:27] LABS: Comments Flag Yes
[2016-12-16 14:37] LABS: ALT 10 U/L (7-52); AST 17 U/L (13-39); Albumin 3.2 g/dL (3.2-5.2); Alkaline Phosphatase 70 U/L (34-104); Anion Gap 8 mmol/L (2-11); BUN/Creatinine Ratio 22.5 (8-20); Blood Urea Nitrogen 27 mg/dL (6-24); C Reactive Protein 91.62 mg/L (< 5.00); CO2 Carbon Dioxide 25 mmol/L (22-32); Calcium 9.1 mg/dL (8.6-10.3); Chloride 98 mmol/L (101-111); Creatine Kinase 30 U/L (10-223); EGFR African American 74.2 (>60); EGFR Non-African American 57.7 (>60); Globulin 3.4 g/dL (2-4); Glucose 116 mg/dL (70-100); Lipase < 10 U/L (11.0-82.0); Magnesium 1.9 mg/dL (1.9-2.7); Potassium 3.9 mmol/L (3.5-5.0); Sodium 131 mmol/L (133-145); Total Protein 6.6 g/dL (6.4-8.9); Uric Acid 4.6 mg/dL (4.4-7.6)
[2016-12-16 14:47] LABS: Urine Bacteria Absent (Absent); Urine Bilirubin Negative (Negative); Urine Glucose Negative (Negative); Urine Nitrite Negative (Negative)
[2016-12-16 14:48] LABS: Troponin I 0.04 ng/mL (<0.04)
[2016-12-16 14:57] LABS: TSH (Thyroid Stimulating Horm) 1.25 mcIU/mL (0.34-5.60)
[2016-12-16 15:10] LABS: Eosinophils % 4 % (0-6); Immature Granulocytes 2 % (0-9); Neutrophil % 23 % (38-83); Reactive Lymph % 1 % (0-6)
[2016-12-16 15:11] LABS: Macrocytosis 1+
[2016-12-16 15:12] LABS: Add Path Review? YES; Polychromasia 1+
[2016-12-16] MEDS ORDERED: Cefepime(*) 2 GM in NS 0.9% 50 ML* 50 ML IVPB ONE (15:39)
--- NOTE | 2016-12-16 15:53 | ED ---
Monica Maurice Alfonso, scribed for Koby Luna MD on 12/16/16 at 1135 . Lower Extremity - HPI Summary HPI Summary: This patient is an 86 year old male [facility] c/o aching right ankle pain since yesterday. He reports the pain has gradually become worse. He rates the pain 6/10 in severity. Sx aggravated by ambulation and alleviated by nothing. He reports hip pain (2 weeks), weakness, chill, and tiredness. He denies fever, cough, chest pain, abdominal pain, and diarrhea. PMHX of CAD, lung cancer, and gout. - History of Current Complaint Chief Complaint: EDExtremityLower Stated Complaint: RT ANKLE PAIN Time Seen by Provider: 12/16/16 11:23 Hx Obtained From: Patient Mechanism Of Injury: Unknown Onset of Pain: Prior to Arrival Onset/Duration: Worse Since - yesterday Severity Initially: Moderate Severity Currently: Moderate Pain Intensity: 6 Pain Scale Used: 0-10 Numeric Timing: Constant Location: Is Discrete @ - Right ankle Character Of Pain: Aching Associated Signs And Symptoms: Positive: Other - Positive hip pain (2 weeks), weakness, chill, and tiredness; Negative fever, cough, chest pain, abdominal pain, and diarrhea. 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 PNA. Denies: Hx Asthma, Hx Chronic Obstructive Pulmonary Disease (COPD) GI History: Reports: Hx Gastroesophageal Reflux Disease - PRN MEDICATION FOR, Hx Hiatal Hernia - HX OF, Other GI Disorders - SEE BELOW UNDER COMMENTS History: Reports: Other Problems/Disorders - ENLARGE PROSTATE Denies: Hx Dialysis, Hx Renal Disease Musculoskeletal History: Reports: Hx Arthritis, Hx Gout, Other Musculoskeletal History - GOUT CONTROL WITH MEDS Denies: Hx Rheumatoid Arthritis Sensory History: Reports: Hx Cataracts, Hx Contacts or Glasses Denies: Hx Hearing Aid Opthamlomology History: Reports: Hx Cataracts, Hx Contacts or Glasses Neurological History: Reports: Other Neuro Impairments/Disorders - VERTIGO- STATES COMES AND GOES Denies: Hx Headaches Psychiatric History: Reports: Hx Depression - NO MEDS Denies: Hx Anxiety - Cancer History Cancer Type, Location and Year: 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 lung cancer Hx Chemotherapy: Yes - 06/30/16 - Surgical History Surgery Procedure, Year, and Place: Appendectomy as a teenager. 5 vessel bypass in 1997 with [place]. Skin cancer removed from left ear and back, shoulder [phone]. SKIN CANCER REMOVED TOP OF HEAD, LEFT EAR 2014. 2014 CARDIAC CATHERIZATION,[facility] ingunial hernia=06/30. CELIAC ARTERY [place] WITH STENT AUGUST 2015 IN [place] Hx Anesthesia Reactions: Yes - 1997 SLOW TO WAKE AFTER CABG Infectious Disease History: Reports: Hx Shingles Denies: Hx Tuberculosis, Traveled Outside the [place] in Last 30 Days - Family History Known Family History: Positive: Cardiac Disease - CAD - Social History Alcohol Use: None Substance Use Type: Reports: None Smoking Status (MU): Former Smoker Type: Cigarettes Amount Used/How Often: 30 YEARS AGO Length of Time of Smoking/Using Tobacco: APPROX 37 YEARS Have You Smoked in the Last Year: No Review of Systems Positive: Chills. Negative: Fever Negative: Chest Pain Negative: Cough Negative: Abdominal Pain, Diarrhea Positive: Arthralgia - Positive aching right ankle pain (yesterday) and hip pain (2 weeks) Neurological: Other - Positive tiredness Positive: Weakness All Other Systems Reviewed And Are Negative: Yes Physical Exam Triage Information Reviewed: Yes Vital Signs On Initial Exam: Initial Vitals BP 148/61 12/16/16 10:54 Vital Signs Reviewed: Yes Appearance: Positive: No Pain Distress, Ill-Appearing - Midly Skin: Positive: Warm, Skin Color Reflects Adequate Perfusion, Dry Head/Face: Positive: Normal Head/Face Inspection Eyes: Positive: EOMI, LISSETT ENT: Positive: Normal ENT inspection Neck: Positive: Supple, Nontender Respiratory/Lung Sounds: Positive: Clear to Auscultation, Breath Sounds Present Cardiovascular: Positive: RRR Abdomen Description: Positive: Nontender, No Organomegaly Bowel Sounds: Positive: Present Musculoskeletal: Positive: Other - Swelling at the right ankle. Erythema on the lateral malleolus. Good capillary refills. Neurological: Positive: Normal, Sensory/Motor Intact, Alert, Oriented to Person Place, Time Psychiatric: Positive: Affect/Mood Appropriate Diagnostics - Vital Signs Vital Signs Temp Pulse Resp BP Pulse Ox 12/16/16 11:01 99.9 F 93 19 135/66 96 12/16/16 11:00 90 135/66 97 12/16/16 10:59 99.9 F 89 19 148/61 97 12/16/16 10:56 93 96 12/16/16 10:54 148/61 - Laboratory Lab Results: Lab Results 12/16/16 12/16/16 12/16/16 Range/Units 14:00 14:00 14:00 WBC 2.3 L (3.5-10.8) 10^3/ul RBC 3.15 L (4.0-5.4) 10^6/ul Hgb 9.8 L (14.0-18.0) g/dl Hct 30 L (42-52) % MCV 95 H (80-94) fL MCH 31 (27-31) pg MCHC 33 (31-36) g/dl RDW 19 H (10.5-15) % Plt Count 155 (150-450) 10^3/ul MPV 9 (7.4-10.4) um3 Immature Gran % (Auto) 2 (0-9) % Neut % (Auto) 23.4 L (38-83) % Lymph % (Auto) 40.5 (25-47) % Crockett % (Auto) 32.5 H (1-9) % Eos % (Auto) 2.5 (0-6) % Baso % (Auto) 1.1 (0-2) % Absolute Neuts (auto) 0.5 L* (1.5-7.7) 10^3/ul Absolute Lymphs (auto) 0.9 L (1.0-4.8) 10^3/ul Absolute Monos (auto) 0.7 (0-0.8) 10^3/ul Absolute Eos (auto) 0.1 (0-0.6) 10^3/ul Absolute Basos (auto) 0 (0-0.2) 10^3/ul Absolute Nucleated RBC 0.01 10^3/ul Neutrophils % 23 L (38-83) % Band Neutrophils % 2 (0-8) % Lymphocytes % 51 H (25-47) % Reactive Lymphs % 1 (0-6) % Monocytes % 18 H (0-13) % Eosinophils % 4 (0-6) % Basophils % 1 (0-2) % Nucleated RBC % 0.3 Normal RBC Morphology Not Reportable Polychromasia 1+ Macrocytosis 1+ Elliptocytes 1+ Hem Pathologist Commnt Pending INR (Anticoag Therapy) 1.06 (0.89-1.11) APTT 32.1 (26.0-36.3) seconds Sodium 131 L (133-145) mmol/L Potassium 3.9 (3.5-5.0) mmol/L Chloride 98 L (101-111) mmol/L Carbon Dioxide 25 (22-32) mmol/L Anion Gap 8 (2-11) mmol/L BUN 27 H (6-24) mg/dL Creatinine 1.20 H (0.67-1.17) mg/dL Est GFR ( Amer) 74.2 (>60) Est GFR (Non-Af Amer) 57.7 (>60) BUN/Creatinine Ratio 22.5 H (8-20) Glucose 116 H (70-100) mg/dL Lactic Acid (0.5-2.0) mmol/L Uric Acid 4.6 (4.4-7.6) mg/dL Calcium 9.1 (8.6-10.3) mg/dL Magnesium 1.9 (1.9-2.7) mg/dL Total Bilirubin 1.00 (0.2-1.0) mg/dL AST 17 (13-39) U/L ALT 10 (7-52) U/L Alkaline Phosphatase 70 (34-104) U/L Total Creatine Kinase 30 (10-223) U/L CK-MB (CK-2) 1.6 (0.6-6.3) ng/mL Troponin I 0.04 H* (<0.04) ng/mL C-Reactive Protein 91.62 H (< 5.00) mg/L B-Natriuretic Peptide ( - 100) pg/mL Total Protein 6.6 (6.4-8.9) g/dL Albumin 3.2 (3.2-5.2) g/dL Globulin 3.4 (2-4) g/dL Albumin/Globulin Ratio 0.9 L (1-3) Lipase < 10 L (11.0-82.0) U/L TSH 1.25 (0.34-5.60) mcIU/mL Urine Color Urine Appearance Urine pH (5-9) Ur Specific Hagan (1.010-1.030) Urine Protein (Negative) Urine Ketones (Negative) Urine Blood (Negative) Urine Nitrate (Negative) Urine Bilirubin (Negative) Urine Urobilinogen (Negative) Ur Leukocyte Esterase (Negative) Urine WBC (Auto) (Absent) Urine RBC (Auto) (Absent) Ur Squamous Epith Cells (Absent) Urine Bacteria (Absent) Hyaline Casts (Absent) Urine Glucose (Negative) 12/16/16 12/16/16 12/16/16 Range/Units 14:00 14:00 14:26 WBC (3.5-10.8) 10^3/ul RBC (4.0-5.4) 10^6/ul Hgb (14.0-18.0) g/dl Hct (42-52) % MCV (80-94) fL MCH (27-31) pg MCHC (31-36) g/dl RDW (10.5-15) % Plt Count (150-450) 10^3/ul MPV (7.4-10.4) um3 Immature Gran % (Auto) (0-9) % Neut % (Auto) (38-83) % Lymph % (Auto) (25-47) % Crockett % (Auto) (1-9) % Eos % (Auto) (0-6) % Baso % (Auto) (0-2) % Absolute Neuts (auto) (1.5-7.7) 10^3/ul Absolute Lymphs (auto) (1.0-4.8) 10^3/ul Absolute Monos (auto) (0-0.8) 10^3/ul Absolute Eos (auto) (0-0.6) 10^3/ul Absolute Basos (auto) (0-0.2) 10^3/ul Absolute Nucleated RBC 10^3/ul Neutrophils % (38-83) % Band Neutrophils % (0-8) % Lymphocytes % (25-47) % Reactive Lymphs % (0-6) % Monocytes % (0-13) % Eosinophils % (0-6) % Basophils % (0-2) % Nucleated RBC % Normal RBC Morphology Polychromasia Macrocytosis Elliptocytes Hem Pathologist Commnt INR (Anticoag Therapy) (0.89-1.11) APTT (26.0-36.3) seconds Sodium (133-145) mmol/L Potassium (3.5-5.0) mmol/L Chloride (101-111) mmol/L Carbon Dioxide (22-32) mmol/L Anion Gap (2-11) mmol/L BUN (6-24) mg/dL Creatinine (0.67-1.17) mg/dL Est GFR ( Amer) (>60) Est GFR (Non-Af Amer) (>60) BUN/Creatinine Ratio (8-20) Glucose (70-100) mg/dL Lactic Acid 1.1 (0.5-2.0) mmol/L Uric Acid (4.4-7.6) mg/dL Calcium (8.6-10.3) mg/dL Magnesium (1.9-2.7) mg/dL Total Bilirubin (0.2-1.0) mg/dL AST (13-39) U/L ALT (7-52) U/L Alkaline Phosphatase (34-104) U/L Total Creatine Kinase (10-223) U/L CK-MB (CK-2) (0.6-6.3) ng/mL Troponin I (<0.04) ng/mL C-Reactive Protein (< 5.00) mg/L B-Natriuretic Peptide 433 H ( - 100) pg/mL Total Protein (6.4-8.9) g/dL Albumin (3.2-5.2) g/dL Globulin (2-4) g/dL Albumin/Globulin Ratio (1-3) Lipase (11.0-82.0) U/L TSH (0.34-5.60) mcIU/mL Urine Color Yellow Urine Appearance Clear Urine pH 5.0 (5-9) Ur Specific Hagan 1.015 (1.010-1.030) Urine Protein 1+(30 mg/dl) H (Negative) Urine Ketones Trace H (Negative) Urine Blood Negative (Negative) Urine Nitrate Negative (Negative) Urine Bilirubin Negative (Negative) Urine Urobilinogen Negative (Negative) Ur Leukocyte Esterase Negative (Negative) Urine WBC (Auto) Absent (Absent) Urine RBC (Auto) Absent (Absent) Ur Squamous Epith Cells Present H (Absent) Urine Bacteria Absent (Absent) Hyaline Casts Present H (Absent) Urine Glucose Negative (Negative) Result Diagrams: 12/16/16 14:00 12/16/16 14:00 Lab Statement: Any lab studies that have been ordered have been reviewed, and results considered in the medical decision making process. - Radiology CXR Radiology Interpretation Completed By: Radiologist - STABLE CALCIFIED PLEURAL PLAQUES. NO ACTIVE CARDIOPULMONARY DISEASE Ankle X-Ray Radiology Interpretation Completed By: Radiologist - 1. NO RADIOGRAPHIC EVIDENCE OF ACUTE BONY ABNORMALITY OF THE RIGHT ANKLE. 2. COARSE ATHEROSCLEROTIC CALCIFICATION OF THE LOWER INFRAPOPLITEAL AND PEDAL ARTERIES. PLEASE CORRELATE TO SIGNS AND SYMPTOMS OF ARTERIAL INSUFFICIENCY. Lower Extremity Course/Dx - Course Course Of Treatment: NO CRITICAL CARE TIME. DISCUSSED RESULTS WITH PATIENT/WFE/ DR FRIAS. ADMIT HEME/ONC STABLE. - Diagnoses Provider Diagnoses: Weakness, Neutropenia, Right ankle swelling Discharge - Discharge Plan Condition: Stable Disposition: ADMITTED TO [facility] Referrals: No Primary Care Phys,NOPCP [Primary Care Provider] - The documentation as recorded by the Monica mike Alfonso accurately reflects the service I personally performed and the decisions made by me, Koby Luna MD.
[2016-12-16] MEDS ORDERED: NS 0.9% 50 ML* 50 ML ONE (16:03)
[2016-12-16] MEDS ORDERED: Ondansetron TAB* 4 MG PO PRN (16:38)
[2016-12-16] MEDS ORDERED: traMADol TAB* 50 MG PO PRN (16:38)
[2016-12-16] MEDS ORDERED: Cefepime(*) 2 GM in NS 0.9% 50 ML* 50 ML IVPB SCH (17:00)
[2016-12-16] MEDS: Atorvastatin* 10 MG TAB PO SCH (17:20)
[2016-12-16] MEDS: Enoxaparin(*) 40 MG/0.4 ML SYR SUBCUT SCH (17:20)
--- NOTE | 2016-12-16 17:44 | RAD ---
Indication: Ankle swelling. Real-time sonography of the right ankle was obtained in the lateral aspect. A small amount of edema is noted with interstitial fluid. There is some fluid just lateral to the calcaneus. Findings are consistent with cellulitis. IMPRESSION: Minimal amount of fluid adjacent to the calcaneus. Findings are consistent with cellulitis.
[2016-12-16] MEDS: NS 0.9% 1000 ML* 1,000 ML IV SCH (18:24)
[2016-12-16] MEDS: Omeprazole CAP* 20 MG PO SCH (18:24)
[2016-12-16] MEDS: Temazepam CAP* 15 MG PO PRN (21:59)
[2016-12-16] MEDS: Tamsulosin CAP* 0.4 MG PO SCH (21:59)
[2016-12-16] MEDS: Metoprolol Succinate XL TAB* 25 MG PO SCH (21:59)
[2016-12-17 04:41] LABS: Hematocrit 25 % (42-52); Hemoglobin 8.2 g/dl (14.0-18.0); Mean Corpuscular HGB Conc 33 g/dl (31-36); Mean Corpuscular Hemoglobin 31 pg (27-31); Mean Corpuscular Volume 95 fL (80-94); Mean Platelet Volume 9 um3 (7.4-10.4); Red Blood Count 2.61 10^6/ul (4.0-5.4); Red Cell Distribution Width 18 % (10.5-15); White Blood Count 2.2 10^3/ul (3.5-10.8)
[2016-12-17 04:42] LABS: Add Diff/Slide Review? Manual Diff Added; Comments Flag Yes
[2016-12-17 04:50] LABS: Albumin 2.7 g/dL (3.2-5.2); BUN/Creatinine Ratio 23.4 (8-20); Calcium 8.4 mg/dL (8.6-10.3); EGFR African American 81.2 (>60); EGFR Non-African American 63.1 (>60); Globulin 2.8 g/dL (2-4); Potassium 3.7 mmol/L (3.5-5.0); Total Bilirubin 0.7 mg/dL (0.2-1.0); Total Protein 5.5 g/dL (6.4-8.9)
[2016-12-17] MEDS: Cefepime(*) 2 GM in NS 0.9% 50 ML* 50 ML IVPB SCH ×2 (05:12→16:10)
--- NOTE | 2016-12-17 07:31 | PN ---
Progress Note - Progress Note Date of Service: 12/17/16 SOAP: Subjective: reports feeling much better this am. lying naked in bed but can not tell me why he has no pants on. reports that his ankle feels better. no nausea or vomiting. his room temperature is very warm and he reports that he is still feeling very cold/chilled. Objective: Vital Signs Temp Pulse Resp BP Pulse Ox 99.1 F 84 18 108/52 94 12/17/16 03:32 12/17/16 03:32 12/17/16 03:32 12/17/16 03:32 12/17/16 03:32 lying flat on side in nad perr eomi op moist poor dentition no thrush distant heart sounds distant breath sounds trace ankle and top of foot edema on right foot worsened with compression device A+O x 3, nonfocal neurological exam skin intact Laboratory Results - last 24 hr 12/16/16 12/16/16 12/16/16 14:00 14:00 14:00 WBC 2.3 L RBC 3.15 L Hgb 9.8 L Hct 30 L MCV 95 H MCH 31 MCHC 33 RDW 19 H Plt Count 155 MPV 9 Immature Gran % (Auto) 2 Neut % (Auto) 23.4 L Lymph % (Auto) 40.5 Dickens % (Auto) 32.5 H Eos % (Auto) 2.5 Baso % (Auto) 1.1 Absolute Neuts (auto) 0.5 L* Absolute Lymphs (auto) 0.9 L Absolute Monos (auto) 0.7 Absolute Eos (auto) 0.1 Absolute Basos (auto) 0 Absolute Nucleated RBC 0.01 Neutrophils % 23 L Band Neutrophils % 2 Lymphocytes % 51 H Reactive Lymphs % 1 Monocytes % 18 H Eosinophils % 4 Basophils % 1 Nucleated RBC % 0.3 Normal RBC Morphology Not Reportable Polychromasia 1+ Macrocytosis 1+ Elliptocytes 1+ INR (Anticoag Therapy) 1.06 APTT 32.1 Sodium 131 L Potassium 3.9 Chloride 98 L Carbon Dioxide 25 Anion Gap 8 BUN 27 H Creatinine 1.20 H Est GFR ( Amer) 74.2 Est GFR (Non-Af Amer) 57.7 BUN/Creatinine Ratio 22.5 H Glucose 116 H Lactic Acid Uric Acid 4.6 Calcium 9.1 Magnesium 1.9 Total Bilirubin 1.00 AST 17 ALT 10 Alkaline Phosphatase 70 Total Creatine Kinase 30 CK-MB (CK-2) 1.6 Troponin I 0.04 H* C-Reactive Protein 91.62 H B-Natriuretic Peptide Total Protein 6.6 Albumin 3.2 Globulin 3.4 Albumin/Globulin Ratio 0.9 L Lipase < 10 L TSH 1.25 Urine Color Urine Appearance Urine pH Ur Specific Mitchell Urine Protein Urine Ketones Urine Blood Urine Nitrate Urine Bilirubin Urine Urobilinogen Ur Leukocyte Esterase Urine WBC (Auto) Urine RBC (Auto) Ur Squamous Epith Cells Urine Bacteria Hyaline Casts Urine Glucose 12/16/16 12/16/16 12/16/16 14:00 14:00 14:26 WBC RBC Hgb Hct MCV MCH MCHC RDW Plt Count MPV Immature Gran % (Auto) Neut % (Auto) Lymph % (Auto) Dickens % (Auto) Eos % (Auto) Baso % (Auto) Absolute Neuts (auto) Absolute Lymphs (auto) Absolute Monos (auto) Absolute Eos (auto) Absolute Basos (auto) Absolute Nucleated RBC Neutrophils % Band Neutrophils % Lymphocytes % Reactive Lymphs % Monocytes % Eosinophils % Basophils % Nucleated RBC % Normal RBC Morphology Polychromasia Macrocytosis Elliptocytes INR (Anticoag Therapy) APTT Sodium Potassium Chloride Carbon Dioxide Anion Gap BUN Creatinine Est GFR ( Amer) Est GFR (Non-Af Amer) BUN/Creatinine Ratio Glucose Lactic Acid 1.1 Uric Acid Calcium Magnesium Total Bilirubin AST ALT Alkaline Phosphatase Total Creatine Kinase CK-MB (CK-2) Troponin I C-Reactive Protein B-Natriuretic Peptide 433 H Total Protein Albumin Globulin Albumin/Globulin Ratio Lipase TSH Urine Color Yellow Urine Appearance Clear Urine pH 5.0 Ur Specific Mitchell 1.015 Urine Protein 1+(30 mg/dl) H Urine Ketones Trace H Urine Blood Negative Urine Nitrate Negative Urine Bilirubin Negative Urine Urobilinogen Negative Ur Leukocyte Esterase Negative Urine WBC (Auto) Absent Urine RBC (Auto) Absent Ur Squamous Epith Cells Present H Urine Bacteria Absent Hyaline Casts Present H Urine Glucose Negative 12/17/16 12/17/16 04:15 04:15 WBC 2.2 L RBC 2.61 L Hgb 8.2 L Hct 25 L MCV 95 H MCH 31 MCHC 33 RDW 18 H Plt Count 144 L MPV 9 Immature Gran % (Auto) Neut % (Auto) Lymph % (Auto) Dickens % (Auto) Eos % (Auto) Baso % (Auto) Absolute Neuts (auto) 0.3 L Absolute Lymphs (auto) 1.0 Absolute Monos (auto) 0.7 Absolute Eos (auto) 0.2 Absolute Basos (auto) 0 Absolute Nucleated RBC 0 Neutrophils % Band Neutrophils % Lymphocytes % Reactive Lymphs % Monocytes % Eosinophils % Basophils % Nucleated RBC % Normal RBC Morphology Polychromasia Macrocytosis Elliptocytes INR (Anticoag Therapy) APTT Sodium 130 L Potassium 3.7 Chloride 101 Carbon Dioxide 24 Anion Gap 5 BUN 26 H Creatinine 1.11 Est GFR ( Amer) 81.2 Est GFR (Non-Af Amer) 63.1 BUN/Creatinine Ratio 23.4 H Glucose 107 H Lactic Acid Uric Acid Calcium 8.4 L Magnesium Total Bilirubin 0.70 AST 13 ALT 8 Alkaline Phosphatase 57 Total Creatine Kinase CK-MB (CK-2) Troponin I C-Reactive Protein B-Natriuretic Peptide Total Protein 5.5 L Albumin 2.7 L Globulin 2.8 Albumin/Globulin Ratio 1.0 Lipase TSH Urine Color Urine Appearance Urine pH Ur Specific Mitchell Urine Protein Urine Ketones Urine Blood Urine Nitrate Urine Bilirubin Urine Urobilinogen Ur Leukocyte Esterase Urine WBC (Auto) Urine RBC (Auto) Ur Squamous Epith Cells Urine Bacteria Hyaline Casts Urine Glucose Assessment: 86 yo M w recurrent small cell lung cancer, recently started on palliative paclitaxel (12/03/16) presenting with chills, neutropenia and ankle pain and found to have cellulitis. clinically improving on IV antibiotics. Plan: Cellulitis: cont iv cefepime remove compression device from this leg pancytopenia: chemotherapy induced, will likely need to dose reduce cycle 2 hyponatremia: hypovolemic hyponatremia cont IVFs ARF: prerenal azotemia, improving with IVFs, will cont gentle fluids today dvt prophylaxis: lovenox
[2016-12-17] MEDS: Omeprazole CAP* 20 MG PO SCH ×2 (07:56→16:10)
[2016-12-17] MEDS: Allopurinol TAB* 300 MG PO SCH (07:56)
[2016-12-17] MEDS: Metoprolol Succinate XL TAB* 25 MG PO SCH ×2 (08:03→20:36)
[2016-12-17] MEDS: NS 0.9% 1000 ML* 1,000 ML IV SCH (16:10)
[2016-12-17] MEDS: Atorvastatin* 10 MG TAB PO SCH (16:10)
[2016-12-17] MEDS: Enoxaparin(*) 40 MG/0.4 ML SYR SUBCUT SCH (16:11)
[2016-12-17] MEDS: Temazepam CAP* 15 MG PO PRN (20:36)
[2016-12-17] MEDS: Tamsulosin CAP* 0.4 MG PO SCH (20:36)
[2016-12-18] MEDS: Cefepime(*) 2 GM in NS 0.9% 50 ML* 50 ML IVPB SCH ×2 (04:15→17:27)
[2016-12-18 05:47] LABS: Hematocrit 25 % (42-52); Hemoglobin 8.2 g/dl (14.0-18.0); Mean Corpuscular HGB Conc 33 g/dl (31-36); Mean Corpuscular Hemoglobin 32 pg (27-31); Mean Corpuscular Volume 96 fL (80-94); Mean Platelet Volume 9 um3 (7.4-10.4); Red Blood Count 2.58 10^6/ul (4.0-5.4); Red Cell Distribution Width 18 % (10.5-15); White Blood Count 2.2 10^3/ul (3.5-10.8)
[2016-12-18 05:49] LABS: Add Diff/Slide Review? Manual Diff Added; Comments Flag Yes
[2016-12-18 06:00] LABS: Albumin 2.6 g/dL (3.2-5.2); BUN/Creatinine Ratio 22.3 (8-20); Calcium 8.5 mg/dL (8.6-10.3); EGFR African American 80.3 (>60); EGFR Non-African American 62.5 (>60); Globulin 2.9 g/dL (2-4); Potassium 3.6 mmol/L (3.5-5.0); Total Bilirubin 0.6 mg/dL (0.2-1.0); Total Protein 5.5 g/dL (6.4-8.9)
[2016-12-18 06:19] LABS: Hypochromasia 2+; Immature Granulocytes 2 % (0-9); Macrocytosis 1+; Microcytosis 1+; Neutrophil % 9 % (38-83); Reactive Lymph % 2 % (0-6)
[2016-12-18] MEDS: Omeprazole CAP* 20 MG PO SCH ×2 (08:25→17:26)
[2016-12-18] MEDS: Allopurinol TAB* 300 MG PO SCH (08:25)
[2016-12-18] MEDS: Metoprolol Succinate XL TAB* 25 MG PO SCH ×2 (08:27→22:07)
--- NOTE | 2016-12-18 11:01 | PN ---
Progress Note - Progress Note Date of Service: 12/18/16 SOAP: Subjective: []Feeling a lot better. Ankle pain continues to improve. Still has some hip pain (long standing) though denies needing intervention. Denies further chills. Eating well. No other complaints. Wants very much to go home. Medications: Acetaminophen (Tylenol Tab*) 650 mg PO Q6H PRN PRN Reason: pain/fever Allopurinol (Zyloprim Tab*) 300 mg PO DAILY [facility] Last Admin: 12/18/16 08:25 Dose: 300 mg Atorvastatin Calcium (Lipitor*) 10 mg PO 1700 [facility] Last Admin: 12/17/16 16:10 Dose: 10 mg Enoxaparin Sodium (Lovenox(*)) 40 mg SUBCUT Q24H [facility] Last Admin: 12/17/16 16:11 Dose: 40 mg Cefepime HCl 2 gm/ Sodium (Chloride) 50 mls @ 100 mls/hr IVPB 0500,1700 [facility] Last Admin: 12/18/16 04:15 Dose: 100 mls/hr Metoprolol Succinate (Toprol Xl Tab*) 25 mg PO BID [facility] Last Admin: 12/18/16 08:27 Dose: 25 mg Omeprazole (Prilosec Cap*) 20 mg PO 0730,1630 [facility] Last Admin: 12/18/16 08:25 Dose: 20 mg Ondansetron HCl (Zofran Tab*) 4 mg PO Q4HR PRN PRN Reason: NAUSEA/VOMITING Tamsulosin HCl (Flomax Cap*) 0.8 mg PO BEDTIME [facility] Last Admin: 12/17/16 20:36 Dose: 0.8 mg Temazepam (Restoril Cap*) 15 mg PO BEDTIME PRN PRN Reason: INSOMNIA Last Admin: 12/17/16 20:36 Dose: 15 mg Tramadol HCl (Ultram*) 50 mg PO Q6H PRN PRN Reason: PAIN Objective: [] Vital Signs Temp Pulse Resp BP Pulse Ox 97.8 F 83 16 146/55 97 12/18/16 08:36 12/18/16 08:36 12/18/16 08:36 12/18/16 08:36 12/18/16 08:36 A&Ox3, EOMI, neuro grossly non-focal HRR, murmur noted LS clear bilat. throughout with even and non-labored resp. rate +BS, abd. soft and non-tender +PP=bilat. Right lateral maleolous with small amt. of swelling, slight erythema, no warmth (markedly improved since admission) Laboratory Results - last 24 hr 12/16/16 12/18/16 12/18/16 14:00 05:23 05:23 WBC 2.2 L RBC 2.58 L Hgb 8.2 L Hct 25 L MCV 96 H MCH 32 H MCHC 33 RDW 18 H Plt Count 152 MPV 9 Immature Gran % (Auto) 2 Absolute Neuts (auto) 0.2 L Absolute Lymphs (auto) 1.0 Absolute Monos (auto) 0.8 Absolute Eos (auto) 0.3 Absolute Basos (auto) 0 Absolute Nucleated RBC 0.01 Neutrophils % 9 L Band Neutrophils % 2 Lymphocytes % 45 Reactive Lymphs % 2 Monocytes % 42 H Normal RBC Morphology Not Reportable Hypochromasia 2+ Microcytosis 1+ Macrocytosis 1+ Hem Pathologist Commnt Sodium 133 Potassium 3.6 Chloride 105 Carbon Dioxide 23 Anion Gap 5 BUN 25 H Creatinine 1.12 Est GFR ( Amer) 80.3 Est GFR (Non-Af Amer) 62.5 BUN/Creatinine Ratio 22.3 H Glucose 109 H Calcium 8.5 L Total Bilirubin 0.60 AST 13 ALT 7 Alkaline Phosphatase 51 Total Protein 5.5 L Albumin 2.6 L Globulin 2.9 Albumin/Globulin Ratio 0.9 L Assessment: []86 yo m with recurrent SCLC currently on palliative Paclitaxel presenting to ER 2 days ago with severe weakness and found to have a right ankle cellulitis. Work-up revealed neutropenia (secondary to chemotherapy) and 24 hrs of chills likely representing a febrile neutropenia (though no temp >99 documented). He has cont.'d improve on IV Cefepime. Plan: []1. Cellulitis: cont. IV Cefepime today (D3) and goal of d/c on PO abx. tomorrow, though count dependent 2. Neutropenia: Chemotherapy induced, increased monocytes and expect to resolve over next 24-72 hrs, follow 3. SCLC: will resume palliative chemotherapy as outpatient, though may benefit from dose reduction, pt. to see oncologist (Dr. Abdullahi) next Wed. 12/23
--- NOTE | 2016-12-18 14:39 | RAD ---
INDICATION: Left hip pain, cellulitis of the right foot. Comparison: Comparison is made with a prior ultrasound of the right lower extremity ankle region and prior x-ray study of the right ankle from December 16, 2016. Correlation is also bright with a prior CT angiogram of the chest from November 09, [address] angiogram of the chest and abdomen from June 05, 2016. Technique: The patient was given an intravenous injection of 20.3 mCi of technetium 99m HDP, and a 3 phase bone scan was performed with attention to the ankles. In addition, whole body images were obtained in the anterior and posterior projections. FINDINGS: There is increased activity on the perfusion images in the right ankle with more localized activity present in the lateral ankle on the blood pool images which localizes to the lateral malleolus on the delayed images suspicious for osteomyelitis. There is mild increased activity in the region of the left sternal clavicular joint which correlates with osteoarthritic change on the prior CT study. There is mild increased activity in the midportion of the right clavicle which correlates with an old fracture. There is mild increased activity in several right anterolateral ribs which correlates with old fractures. There is mild increased activity in the mid and lower dorsal spine. There is diffuse degenerative disc disease throughout the dorsal spine without significant focal abnormality. There is mild increased activity in the mid lumbar spine which appears to correlate with degenerative disc disease. There is a mild focus of increased activity present in the right proximal femur intertrochanteric region. No abnormalities seen on the prior x-ray study of the left hip which includes the pelvis from December 09, 2016. There is normal bilateral renal activity. IMPRESSION: 1. INCREASED ACTIVITY ON ALL 3 PHASES OF THE SCAN IN THE REGION OF THE LATERAL MALLEOLUS SUSPICIOUS FOR OSTEOMYELITIS. 2. MULTIPLE FOCI OF INCREASED ACTIVITY WITHIN THE RIGHT CLAVICLE, LEFT STERNAL CLAVICULAR JOINT, RIGHT ANTEROLATERAL RIBS AND LUMBAR SPINE WHICH APPEARS TO CORRELATE WITH DEGENERATIVE CHANGES AND OLD FRACTURES. 3. MILD INCREASED ACTIVITY IN THE MID AND LOWER DORSAL SPINE WITHOUT DEFINITE RADIOGRAPHIC CORRELATION POSSIBLY SECONDARY TO DEGENERATIVE DISC DISEASE ALTHOUGH METASTATIC DISEASE CANNOT BE EXCLUDED. THIS COULD BE FURTHER EVALUATED WITH AN MRI OF THE DORSAL SPINE IF CLINICALLY NEEDED. 4. MILD INCREASED ACTIVITY IN THE PROXIMAL RIGHT FEMUR RECOMMEND AN X-RAY STUDY OF THE RIGHT HIP FOR FURTHER EVALUATION. CPT II Codes: 3570F
[2016-12-18] MEDS: Acetaminophen TAB* 325 MG PO PRN (17:25)
[2016-12-18] MEDS: Atorvastatin* 10 MG TAB PO SCH (17:25)
[2016-12-18] MEDS: Enoxaparin(*) 40 MG/0.4 ML SYR SUBCUT SCH (17:27)
[2016-12-18] MEDS: Tamsulosin CAP* 0.4 MG PO SCH (22:07)
[2016-12-18] MEDS: Calcium Carbonate CHEW TAB* 500 MG (TUMS) PO PRN (22:07)
[2016-12-18] MEDS: Temazepam CAP* 15 MG PO PRN (22:17)
[2016-12-19] MEDS: Cefepime(*) 2 GM in NS 0.9% 50 ML* 50 ML IVPB SCH ×2 (04:50→15:53)
[2016-12-19] MEDS: Omeprazole CAP* 20 MG PO SCH ×2 (07:56→15:52)
[2016-12-19] MEDS: Metoprolol Succinate XL TAB* 25 MG PO SCH ×2 (07:56→20:27)
[2016-12-19] MEDS: Allopurinol TAB* 300 MG PO SCH (07:56)
[2016-12-19 11:52] LABS: Hematocrit 29 % (42-52); Hemoglobin 9.6 g/dl (14.0-18.0); Mean Corpuscular HGB Conc 33 g/dl (31-36); Mean Corpuscular Hemoglobin 31 pg (27-31); Mean Corpuscular Volume 95 fL (80-94); Mean Platelet Volume 9 um3 (7.4-10.4); Red Blood Count 3.09 10^6/ul (4.0-5.4); Red Cell Distribution Width 18 % (10.5-15); White Blood Count 2.4 10^3/ul (3.5-10.8)
[2016-12-19 11:53] LABS: Add Diff/Slide Review? Manual Diff Added; Comments Flag Yes
[2016-12-19 12:34] LABS: Eosinophils % 8 % (0-6); Immature Granulocytes 3 % (0-9); Metamyelocytes % 2 % (0-2); Neutrophil % 11 % (38-83); Reactive Lymph % 3 % (0-6)
[2016-12-19 12:36] LABS: Add Path Review? YES; Macrocytosis 1+
[2016-12-19] MEDS: Atorvastatin* 10 MG TAB PO SCH (15:52)
[2016-12-19] MEDS: Enoxaparin(*) 40 MG/0.4 ML SYR SUBCUT SCH (15:52)
[2016-12-19] MEDS: Calcium Carbonate CHEW TAB* 500 MG (TUMS) PO PRN (16:10)
[2016-12-19] MEDS: Temazepam CAP* 15 MG PO PRN (20:27)
[2016-12-19] MEDS: Tamsulosin CAP* 0.4 MG PO SCH (20:27)
[2016-12-19] MEDS: Acetaminophen TAB* 325 MG PO PRN (22:03)
[2016-12-20] MEDS: Cefepime(*) 2 GM in NS 0.9% 50 ML* 50 ML IVPB SCH ×2 (05:19→17:06)
[2016-12-20 07:02] LABS: Hematocrit 26 % (42-52); Hemoglobin 8.6 g/dl (14.0-18.0); Mean Corpuscular HGB Conc 34 g/dl (31-36); Mean Corpuscular Hemoglobin 32 pg (27-31); Mean Corpuscular Volume 94 fL (80-94); Mean Platelet Volume 9 um3 (7.4-10.4); Red Blood Count 2.73 10^6/ul (4.0-5.4); Red Cell Distribution Width 18 % (10.5-15); White Blood Count 3.2 10^3/ul (3.5-10.8)
[2016-12-20 07:10] LABS: Add Diff/Slide Review? Manual Diff Added; Comments Flag Yes
[2016-12-20 08:44] LABS: Eosinophils % 6 % (0-6); Immature Granulocytes 8 % (0-9); Macrocytosis 1+; Metamyelocytes % 5 % (0-2); Microcytosis 1+; Myelocytes % 1 % (0-1); Neutrophil % 15 % (38-83); Reactive Lymph % 4 % (0-6)
[2016-12-20] MEDS: Allopurinol TAB* 300 MG PO SCH (08:44)
[2016-12-20] MEDS: Omeprazole CAP* 20 MG PO SCH ×2 (08:44→17:07)
[2016-12-20] MEDS: Metoprolol Succinate XL TAB* 25 MG PO SCH ×2 (08:44→21:45)
[2016-12-20] MEDS: Acetaminophen TAB* 325 MG PO PRN (15:45)
[2016-12-20] MEDS: Enoxaparin(*) 40 MG/0.4 ML SYR SUBCUT SCH (17:06)
[2016-12-20] MEDS: Atorvastatin* 10 MG TAB PO SCH (17:07)
[2016-12-20] MEDS: Tamsulosin CAP* 0.4 MG PO SCH (21:45)
[2016-12-20] MEDS: Temazepam CAP* 15 MG PO PRN (21:45)
[2016-12-21] MEDS: Cefepime(*) 2 GM in NS 0.9% 50 ML* 50 ML IVPB SCH ×2 (05:36→16:15)
[2016-12-21 06:18] LABS: Hematocrit 29 % (42-52); Hemoglobin 9.5 g/dl (14.0-18.0); Mean Corpuscular HGB Conc 33 g/dl (31-36); Mean Corpuscular Hemoglobin 31 pg (27-31); Mean Corpuscular Volume 94 fL (80-94); Mean Platelet Volume 9 um3 (7.4-10.4); Red Blood Count 3.05 10^6/ul (4.0-5.4); Red Cell Distribution Width 18 % (10.5-15); White Blood Count 4.6 10^3/ul (3.5-10.8)
[2016-12-21 06:19] LABS: Add Diff/Slide Review? Manual Diff Added; Comments Flag Yes
[2016-12-21 06:46] LABS: Eosinophils % 2 % (0-6); Immature Granulocytes 9 % (0-9); Metamyelocytes % 2 % (0-2); Myelocytes % 6 % (0-1); Neutrophil % 30 % (38-83); Reactive Lymph % 2 % (0-6)
[2016-12-21 06:47] LABS: Hypochromasia 1+
[2016-12-21 06:48] LABS: Add Path Review? YES
[2016-12-21] MEDS: Allopurinol TAB* 300 MG PO SCH (08:29)
[2016-12-21] MEDS: Omeprazole CAP* 20 MG PO SCH ×2 (08:29→16:16)
[2016-12-21] MEDS: Metoprolol Succinate XL TAB* 25 MG PO SCH ×2 (08:29→21:08)
--- NOTE | 2016-12-21 09:35 | RAD ---
INDICATION: Lung cancer COMPARISON: December 16, 2016, June 02, 2016 TECHNIQUE: PA and lateral dual-energy views were obtained. FINDINGS: Bones/Soft Tissues: There are no acute bony findings. There is sternotomy Cardiomediastinal: The heart is normal in size. Lungs: The right lung is clear. There is hyperinflation with mild chronic interstitial changes. There is volume loss in the left with extensive calcified pleural plaque formation. There are are chronic interstitial changes as well. All findings are stable Pleura: There are no pleural effusions. Other: None IMPRESSION: POSTOPERATIVE CHANGES WITH CHRONIC PLEURAL AND PARENCHYMAL CHANGES LEFT HEMITHORAX. NO ACUTE FINDINGS.
[2016-12-21] MEDS: Enoxaparin(*) 40 MG/0.4 ML SYR SUBCUT SCH (16:15)
[2016-12-21] MEDS: Atorvastatin* 10 MG TAB PO SCH (16:16)
[2016-12-21] MEDS: Temazepam CAP* 15 MG PO PRN (21:08)
[2016-12-21] MEDS: Tamsulosin CAP* 0.4 MG PO SCH (21:08)
--- NOTE | 2016-12-21 23:10 | CONS ---
CONSULTATION REPORT: DATE OF CONSULT: 12/21/16 REQUESTING PHYSICIAN: Dr. Abdullahi. CONSULTING SERVICE: Infectious Disease. REASON FOR CONSULTATION: Right ankle inflammation. IMPRESSION: 1. One week of right ankle pain, swelling and stiffness, improving on cefepime , an x-ray was unrevealing. A bone scan showed uptake in all three phases over the lateral malleolus suspicious for osteomyelitis. Given that he had diffuse edema, erythema, and tenderness throughout the ankle and not limited to the malleolus, I think that that is a false positive on the bone scan, which is fairly common given that there is no external ulceration, of a low pre-test probability for osteomyelitis. Diffuse inflammatory process involving the joint space could include gout versus diffuse cellulitis and tenosynovitis. I think a septic arthritis is less likely given that he has had rapid improvement with just a few days of antibiotics. 2. Metastatic small cell lung cancer, has recently been on paclitaxel. 3. Gout on allopurinol. RECOMMENDATIONS: We will change him to cefuroxime tomorrow to follow his ankle. PLAN: 10 to 14 days of oral antibiotics as well as antiinflammatories if he is able to take them. If possible, I would like to delay his next chemotherapy infusion until the ankle symptoms are much improved. HISTORY OF PRESENT ILLNESS: An 86-year-old man with small cell lung cancer on chemotherapy, admitted with right ankle pain and swelling. He cannot provide many details of the history of present illness, which I obtained instead from review of the medical record and discussion with KASSANDRA Price . He apparently came to the appointment on 12/16/16 with a few days of ankle pain and swelling, no fever, chills or sweats. His appetite was decreased with beginning chemotherapy since mid November. He does not know the access that he receives for chemotherapy. He has had the onset of some pain with weightbearing on that ankle. He has had gout in all the joints including his ankles. He is not sure if it felt like this in the past. He was started on cefepime on the . His white count was 2 at that time. Blood cultures were sent and are negative. He had a bone scan, with findings as noted above. His pain, swelling and redness in the right ankle are much improved after a few days of antibiotics. He is walking around without pain, he notes. He has not had a hospitalization for something like this in the past. PAST MEDICAL HISTORY: 1. Small cell lung cancer, recurrent, metastatic, on chemotherapy. 2. Coronary artery disease with a history of WI, status post CABG and PCI. 3. Aortic stenosis. 4. Hypertension. 5. Skin cancer. 6. Gout. 7. Osteoarthritis. 8. Status post hernia repair. ALLERGIES: No known drug allergies. MEDICATIONS: 1. Tylenol. 2. Allopurinol. 3. Lipitor. 4. Cefepime 2 g IV every 12 hours. 5. Enoxaparin. 6. Metoprolol. 7. Omeprazole. 8. Tamsulosin. 9. Temazepam. 10. Tramadol. SOCIAL HISTORY: He lives in [place]. No travel. No sick contacts. FAMILY HISTORY: No recurrent infections. REVIEW OF SYSTEMS: All negative to full review of systems except as noted above. PHYSICAL EXAM: Vital Signs: Temperature is 36, heart rate 79, respiratory rate 20, blood pressure 140/50, and O2 sat 95% on room air. General: He is awake, not in distress. HEENT: There is no conjunctival hemorrhage. Neurologic: He is oriented x3. Follows commands. Moves all his extremities. Neck: Supple without nuchal rigidity. Lymph Nodes: There is no inguinal, axillary, or epitrochlear lymphadenopathy. Heart has regular rate and rhythm without murmurs, rubs, or gallops. Lungs are clear to auscultation bilaterally. Abdomen is soft, nontender, and nondistended without hepatospleno- megaly. Skin: There is no rash or splinter hemorrhages. Musculoskeletal: There is no spine tenderness to palpation, his right ankle, there is trace edema diffusely. There is no tenderness to palpation over the malleoli. There is no ulceration. There is no erythema. There is minimal warmth. There is slight decreased flexion and extension. There is no pain with weightbearing. LABORATORY DATA: White blood cell count 4, hemoglobin 9, platelets 181. Creatinine is 1.1. CRP was 90 on admission. Please see impressions and recommendations as outlined above, which I have discussed with KASSANDRA Price. Thank you for asking me to see Mr. Mcgregor in consultation. [id number]/[facility] #: [id number] MTDNicole
[2016-12-22] MEDS: Cefepime(*) 2 GM in NS 0.9% 50 ML* 50 ML IVPB SCH (04:28)
[2016-12-22] MEDS: Omeprazole CAP* 20 MG PO SCH (07:57)
[2016-12-22] MEDS: Allopurinol TAB* 300 MG PO SCH (07:57)
[2016-12-22] MEDS: Metoprolol Succinate XL TAB* 25 MG PO SCH (07:57)
[2016-12-22] MEDS ORDERED: ceFUROXime TAB(*) 250 MG PO SCH (08:00)
[2016-12-22 08:34] VITALS: BP 140/64
[2016-12-22] MEDS: Calcium Carbonate CHEW TAB* 500 MG (TUMS) PO PRN (10:08)
--- NOTE | 2016-12-22 12:21 | DS ---
DATE OF ADMISSION: 12/16/2016. DATE OF DISCHARGE: 12/22/2016. PRINCIPAL DIAGNOSIS: Neutropenic fever with swollen right ankle and cellulitis. HISTORY OF PRESENT ILLNESS: Briefly, the patient was admitted by TAMERA Cuevas with neutropenic fever and a swollen ankle. The patient was pancultured for which the blood cultures did not reveal any specific growth. He was also seen by Dr. Dusty Arias for a possible osteomyelitis secondary to the results of a bone scan. After a brief discussion with Dr. Arias, he felt that this did not represent an osteomyelitis and would only require an additional 14 days of Ceftin antibiotic therapy. He was placed on IV antibiotic therapy during his hospital stay and remained afebrile throughout the course of his hospitalization. He was a falls precaution and was put on a patient observation monitor and has done exceptionally well with that. We see him for metastatic small cell cancer and had been on palliative Taxol and was admitted on cycle one day 14 with neutropenic fever. He will require a 20 percent dose reduction on his next cycle. He has done exceptionally well. Of note, his labs and CBC has nicely recovered from this chemotherapy with a absolute neutrophil count of 0.5 on admission to 2.0 on 12/21/2016. His platelets have remained stable and to date are 181. Hemoglobin has remained relatively stable with a hemoglobin of 9.5 and hematocrit of 29. Chemistry has remained stable as well. He did have admission lactic acid of 1.1 and again noted the cultures have remained no growth to date. Principal examinations on the day of admission included a chest x-ray, ankle x-ray and bone scan nuclear medicine study and can be found in his [facility] chart. He will need to follow- up with Dr. Abdullahi's office in approximately one week and again noted he needs a 20 percent dose reduction on his next chemotherapy cycle, which will be cycle two. DISCHARGE MEDICATIONS: He will resume his home medications. The only addition that he will need is Ceftin 500 mg b.i.d. times 14 days, otherwise there were no significant changes. KASSANDRA SILVER [id number]/[facility] #: [id number] [facility]
== END 2016-12-22 12:30 | disposition home or self-care (01) | DRG 602 ==
LOC: ED 10:50 → OBSVTOIN 16:08 → MED 16:08
PROVIDERS: ADMIT Internal Medicine Hematology & Oncology; ATTEND Internal Medicine Hematology & Oncology
DX: L03.115 Cellulitis of right lower limb (principal); D61.810 Antineoplastic chemotherapy induced pancytopenia; N17.9 Acute kidney failure, unspecified; E86.1 Hypovolemia; C34.32 Malignant neoplasm of lower lobe, left bronchus or lung; I11.9 Hypertensive heart disease without heart failure; E87.1 Hypo-osmolality and hyponatremia; C34.81 Malignant neoplasm of overlapping sites of right bronchus and lung; R50.81 Fever presenting with conditions classified elsewhere; N40.0 Benign prostatic hyperplasia without lower urinary tract symptoms; E78.5 Hyperlipidemia, unspecified; D53.9 Nutritional anemia, unspecified; M10.9 Gout, unspecified; I25.10 Atherosclerotic heart disease of native coronary artery without angina pectoris; I35.0 Nonrheumatic aortic (valve) stenosis; Z86.718 Personal history of other venous thrombosis and embolism; Z87.891 Personal history of nicotine dependence; Z79.1 Long term (current) use of non-steroidal anti-inflammatories (NSAID); Z79.899 Other long term (current) drug therapy; Z98.61 Coronary angioplasty status; Z95.1 Presence of aortocoronary bypass graft
CPT/HCPCS: 36415; 71010; 71020; 78315; 80053; 81003; 81015; 82550; 82553; 83605; 83690; 83735; 83880; 84443; 84484; 84550; 85025; 85060; 85610; 85730; 86140; 87040; 99222; 99231; 99232; 99233; 99238; A9270-GY; A9503; G8978-GP-CI; G8979-GP-CI; G8980-GP-CI; J0692; J1650

== ENCOUNTER 2017-01-03 07:15 | Inpatient (IN) | payer MEDICARE ==
[2017-01-03] MEDS ORDERED: NS 0.9% 1000 ML* 1,000 ML IV ONE ×2 (07:50→10:59)
[2017-01-03] MEDS ORDERED: Pantoprazole IV* 40 MG IV ONE (07:50)
[2017-01-03 08:16] LABS: Hematocrit 35 % (42-52); Hemoglobin 11.1 g/dl (14.0-18.0); Mean Corpuscular HGB Conc 32 g/dl (31-36); Mean Corpuscular Hemoglobin 31 pg (27-31); Mean Corpuscular Volume 96 fL (80-94); Mean Platelet Volume 12 um3 (7.4-10.4); Red Blood Count 3.59 10^6/ul (4.0-5.4); Red Cell Distribution Width 20 % (10.5-15); White Blood Count 25.9 10^3/ul (3.5-10.8)
[2017-01-03 08:17] LABS: ALT 13 U/L (7-52); Add Diff/Slide Review? Slide Review Added; Albumin 2.9 g/dL (3.2-5.2); Alkaline Phosphatase 66 U/L (34-104); Amylase 49 U/L (29-103); BUN/Creatinine Ratio 48.9 (8-20); Blood Urea Nitrogen 45 mg/dL (6-24); C Reactive Protein 110.77 mg/L (< 5.00); CO2 Carbon Dioxide 23 mmol/L (22-32); Calcium 8.8 mg/dL (8.6-10.3); Chloride 101 mmol/L (101-111); Comments Flag Yes; EGFR African American 100.8 (>60); EGFR Non-African American 78.4 (>60); Globulin 3.2 g/dL (2-4); Glucose 116 mg/dL (70-100); Lipase 36 U/L (11.0-82.0); Sodium 132 mmol/L (133-145); Total Protein 6.1 g/dL (6.4-8.9)
[2017-01-03 08:49] LABS: Eosinophils % 1 % (0-6); Immature Granulocytes 10 % (0-9); Neutrophil % 88 % (38-83)
[2017-01-03 08:52] LABS: Add Path Review? YES; Burr Cells 1+; Hypochromasia 1+; Tear Drop Cells 1+
[2017-01-03 09:06] LABS: Anion Gap 8 mmol/L (2-11)
--- NOTE | 2017-01-03 09:06 | RAD ---
INDICATION: Rectal bleeding. COMPARISON: Comparison is made with a prior study from June 26, 2015. TECHNIQUE: Supine and decubitus views of the abdomen were obtained. FINDINGS: The small bowel and colon appear nondistended. No free intraperitoneal air is seen. There is calcification at the left lung base which is unchanged. There are vascular calcifications. There are also small calcifications which project over the kidneys consistent with additional vascular calcifications or renal calculi. IMPRESSION: NO EVIDENCE FOR OBSTRUCTION.
[2017-01-03] MEDS: Allopurinol TAB* 300 MG PO SCH (12:21)
[2017-01-03] MEDS: Omeprazole CAP* 20 MG PO SCH ×2 (12:21→20:31)
[2017-01-03] MEDS: ceFUROXime TAB(*) 250 MG PO SCH ×2 (12:21→20:31)
[2017-01-03] MEDS: Enoxaparin(*) 40 MG/0.4 ML SYR SUBCUT SCH (12:22)
[2017-01-03] MEDS: NS 0.9% 1000 ML* 1,000 ML IV SCH (12:22)
--- NOTE | 2017-01-03 15:03 | HP ---
CC: Dr. Abdullahi * HISTORY AND PHYSICAL: DATE OF ADMISSION: 01/03/17 PRIMARY ONCOLOGIST: Dr. Abdullahi. PRIMARY CARE PHYSICIAN: The patient's PCP was Dr. Goodrich. He cannot recall the name of his new PCP. CHIEF COMPLAINT: Weakness, diarrhea, black stool. HISTORY OF PRESENT ILLNESS: Mr. Mcgregor is an 86-year-old man with a past medical history of small cell lung cancer, on palliative chemotherapy with paclitaxel, BPH, CAD, hypertension, hyperlipidemia, anemia, and gout, who presents to the hospital with diarrhea, weakness and reported black stools. The patient was recently admitted to the hospital with neutropenic fever, and was felt to possibly have a cellulitis. He was seen by Infectious Disease during the last hospitalization, and was discharged on 12/22/16 on oral antibiotics which he has been taking. The patient states that on discharge from the hospital, he was feeling well; however, the past few days he has felt more weak and then yesterday developed some diarrhea, which he reports is black. The patient was seen by oncology nurse practitioner on possibly Wednesday01/01/17 and 12/31/16. He states that at that time he was taken off of metoprolol and was given a prescription for Decadron. His antibiotics were continued. He states that last night his diarrhea started. He thinks he has gone somewhere between 5 to 10 times and he reports it as being black. He had associated nausea but no emesis. No abdominal pain or cramping. No fever. No shortness of breath. He has chronic chest pain on the right side, which is unchanged from normal. The patient reports no sick contacts. He came to the hospital for further evaluation. He was noted to have a negative guaiac test. Dr. Alcala was called and felt the patient should be monitored in the hospital and the hospitalist service was consulted to admit the patient. PAST MEDICAL HISTORY: Small cell lung cancer, currently on palliative paclitaxel, last chemotherapy was on 12/30/16. BPH, CAD, hypertension, hyperlipidemia, anemia, gout. PAST SURGICAL HISTORY: None. HOME MEDICATIONS: 1. Ceftin 500 mg by mouth 2 times daily. 2. Flomax 0.8 mg by mouth at bedtime. 3. Simvastatin 20 mg by mouth in the evening. 4. Zofran 4 mg by mouth every 4 hours as needed for nausea. 5. Omeprazole 20 mg by mouth 2 times daily. 6. Decadron 2 mg by mouth daily. 7. Calcium carbonate 500 mg by mouth every 2 hours as needed for indigestion. 8. Allopurinol 300 mg by mouth daily. 9. Acetaminophen 650 mg by mouth every 4 hours as needed for pain. The patient was recently discontinued from his metoprolol which seemed to be Toprol XL 25 mg b.i.d. ALLERGIES: Patient reports allergy to generic LOPRESSOR. FAMILY HISTORY: Significant for father with renal cell carcinoma. Mother with brain tumor. SOCIAL HISTORY: The patient was a former smoker, quit 40 years ago. Denies any alcohol or illicit drug use. REVIEW OF SYSTEMS: A 12-point review of systems is negative except for that as noted in the HPI. PHYSICAL EXAMINATION GENERAL: The patient is elderly man, lying in bed, in no apparent distress. VITAL SIGNS: On admission, temperature 97.7, heart rate of 111, respiratory rate of 20, O2 saturation 91% on room air, blood pressure 97/55. HEENT: Head: Normocephalic, atraumatic. Eyes: Pupils equal, round, and reactive to light and accommodation. Anicteric sclerae. ENT: Dry mucous membranes. No cervical lymphadenopathy. LUNGS: Clear to auscultation bilaterally. No wheezes, rales or rhonchi. CARDIOVASCULAR: Occasional irregular rhythm, seems to correlate with respiration, systolic ejection murmur. ABDOMEN: Soft, nondistended. Tender to palpation in the right lower quadrant and right upper quadrant. Bowel sounds are positive. EXTREMITIES: No cyanosis, clubbing or edema. NEURO: The patient is alert and oriented x3. No focal neurological deficits. DIAGNOSTIC STUDIES/LAB DATA: White blood cell count 25.9, hematocrit of 35, platelets of 106, bands of 10%, PTT of 22.6. Sodium 132, potassium needs to be re- drawn, chloride of 101, carbon dioxide of 23, BUN of 45, creatinine 0.92, glucose of 116. Lactic acid of 1.5. Total bilirubin of 1.3, AST needs to be re -drawn, ALT and alk phos within normal limits. CRP of 110. B-natriuretic peptide of 919. Albumin of 2.9. Lipase of 36, amylase of 49. Abdominal x-ray, personally reviewed, shows no evidence of obstruction. ASSESSMENT AND PLAN: Weakness, diarrhea, leukocytosis in an 86-year-old male with past medical history of squamous cell lung cancer, currently on palliative chemotherapy with a recent cellulitis, on oral antibiotics; benign prostatic hyperplasia, coronary artery disease, hypertension, hyperlipidemia, anemia and gout. 1. Diarrhea and weakness. It seems patient is likely dehydrated. He has received 1 L of IV fluids in the emergency department and we will continue at a rate of 100 cc per hour after an additional bolus was given. The patient's diarrhea may be infectious in etiology. He is on oral antibiotics, which makes him a high risk of C. diff. We will check for this as well as fecal lactoferrin and stool culture. Patient's guaiac was negative. He does not seem to be bleeding at this time. It is unclear that the patient's leukocytosis is due to infectious etiology alone as there is likely some contribution from the steroids he was recently started on. I do not think that the patient received Neupogen any time. Continue supportive care with antiemetics and analgesics as well. 2. Recent cellulitis. We will continue the patient's home Ceftin. I do not see any evidence of infection at this time. 3. Benign prostatic hyperplasia. Continue home Flomax. 4. Gastroesophageal reflux disease. Continue omeprazole 20 b.i.d. 5. History of hypertension. Patient's Toprol 25 b.i.d. was stopped within the past few days. He may be having some rebound tachycardia from this. If the patient does not respond well with IV fluids as far as his heart rate is concerned, may restart a lower dose of patient's previous Toprol. 6. Gout. Continue home allopurinol. 7. History of squamous cell lung cancer. Patient is currently on palliative chemotherapy with paclitaxel. We will hold the patient's Decadron for the moment. 8. DVT prophylaxis, on Lovenox subcu. TIME SPENT: Total time spent on this admission 45 minutes, with over half the time spent [id number] with the patient in counseling and coordinating care. [id number]/[facility] #: [id number] MTDD
[2017-01-03] MEDS: Ondansetron TAB* 4 MG PO PRN (16:27)
[2017-01-03] MEDS: Atorvastatin* 10 MG TAB PO SCH (16:27)
[2017-01-03] MEDS ORDERED: metroNIDAZOLE TAB* 250 MG PO SCH (17:00)
--- NOTE | 2017-01-03 19:02 | ED ---
Devonte Maurice Thomas, scribed for Mario Spain MD on 01/03/17 at 0735 . GI/ HPI - HPI Summary HPI Summary: The pt is an 86 y/o M presenting to the ED c/o intermittent episodes of black stool that began a week ago. Pt additionally c/o diarrhea and upset stomach. Pt denies abd pain, nausea, fever, chills, CP, SOB, and palpitations. He is currently on blood thinners. He had a colonoscopy 5 years ago. PMHx: GI bleed, CAD, lung CA, HTN, [place]. PSHx: CABG, appendectomy. - History of Current Complaint Chief Complaint: EDWeakness Time Seen by Provider: 01/03/17 07:26 Stated Complaint: WEAKNESS Hx Obtained From: Patient Onset/Duration: Started Weeks Ago - 1 week Timing: Intermittent Pain Intensity: 0 Associated Signs and Symptoms: Positive: Black Tarry Stool - intermittent episodes, 1 week. Negative: Nausea, Fever, Chills, Abdominal Pain, Chest Pain, Other: - NEG: SOB, palpitations Aggravating Factor(s): Nothing Alleviating Factor(s): Nothing - Additional Pertinent History Primary Care Physician: [id number] - Allergy/Home Medications Allergies/Adverse Reactions: Allergies Allergy/AdvReac Type Severity Reaction Status Date / Time No Known Allergies Allergy Verified 11/09/16 09:11 Home Medications: Home Medications Dexamethasone TAB* [Decadron TAB*] 2 mg PO DAILY 01/03/17 [History Confirmed ] PMH/Surg Hx/FS Hx/Imm Hx Previously Healthy: No Endocrine/Hematology History: Reports: Hx Anticoagulant Therapy - asa Denies: Hx Diabetes, Hx Systemic Lupus Erythematosus, Hx Thyroid Disease Cardiovascular History: Reports: Hx Angina, Hx Coronary Artery Disease - 5 VESSEL BYPASS (AGE 67)1997, Hx Hypertension - ON MEDICATION FOR, Hx Myocardial Infarction, Hx Valvular Heart Disease - AORTIC AND CELIAC ARTERY STENOSIS HISTORY, Other Cardiovascular Problems/Disorders - CHOLESTEROL CONTROL WITH MEDS Denies: Hx Cardiac Arrest, Hx Congestive Heart Failure, Hx Deep Vein Thrombosis, Hx Hypercholesterolemia, Hx Pacemaker/ICD, Hx Peripheral Vascular Disease Respiratory History: Reports: Hx Lung Cancer, Hx Pneumonia, Other Respiratory Problems/Disorders - LUNG CA. PNA. Denies: Hx Asthma, Hx Chronic Obstructive Pulmonary Disease (COPD) GI History: Reports: Hx Gastroesophageal Reflux Disease - PRN MEDICATION FOR, Hx Hiatal Hernia - HX OF, Other GI Disorders - Hx GI bleed History: Reports: Other Problems/Disorders - ENLARGE PROSTATE Denies: Hx Dialysis, Hx Renal Disease Musculoskeletal History: Reports: Hx Arthritis, Hx Gout, Other Musculoskeletal History - GOUT CONTROL WITH MEDS Denies: Hx Rheumatoid Arthritis Sensory History: Reports: Hx Cataracts, Hx Contacts or Glasses Denies: Hx Hearing Aid Opthamlomology History: Reports: Hx Cataracts, Hx Contacts or Glasses Neurological History: Reports: Other Neuro Impairments/Disorders - VERTIGO- STATES COMES AND GOES Denies: Hx Headaches Psychiatric History: Reports: Hx Depression - NO MEDS Denies: Hx Anxiety - Cancer History Cancer Type, Location and Year: 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 lung cancer Hx Chemotherapy: Yes - 06/30/16 - Surgical History Surgery Procedure, Year, and Place: Appendectomy as a teenager. 5 vessel bypass in 1997 with [place]. Skin cancer removed from left ear and back, shoulder [id number]. SKIN CANCER REMOVED TOP OF HEAD, LEFT EAR 2014. 2014 CARDIAC CATHERIZATION,[facility] ingunial hernia=06/30. CELIAC ARTERY [place] WITH STENT AUGUST 2015 IN [place] Hx Anesthesia Reactions: Yes - 1997 SLOW TO WAKE AFTER CABG Infectious Disease History: No Infectious Disease History: Reports: Hx Shingles Denies: Hx Tuberculosis, Traveled Outside the [place] in Last 30 Days - Family History Known Family History: Positive: Cardiac Disease - CAD - Social History Alcohol Use: None Substance Use Type: Reports: None Smoking Status (MU): Former Smoker Type: Cigarettes Amount Used/How Often: 30 YEARS AGO Length of Time of Smoking/Using Tobacco: APPROX 37 YEARS Have You Smoked in the Last Year: No Review of Systems Constitutional: Negative Negative: Fever, Chills Eyes: Negative ENT: Negative Cardiovascular: Negative Negative: Palpitations, Chest Pain Respiratory: Negative Negative: Shortness Of Breath Positive: Other - POS: black stool, intermittent, onset 1 week ago. Negative: Abdominal Pain, Nausea Genitourinary: Negative Musculoskeletal: Negative Skin: Negative Neurological: Negative Psychological: Normal All Other Systems Reviewed And Are Negative: Yes Physical Exam - Summary Physical Exam Summary: VITAL SIGNS: Reviewed. GENERAL: Patient is a well-developed and nourished male who is lying comfortable in the stretcher. ~Patient is not in any acute respiratory distress. HEAD AND FACE: No signs of trauma. ~No ecchymosis, hematomas or skull depressions. No sinus tenderness. EYES: PERRLA, EOMI x 2, No injected conjunctiva, no nystagmus. EARS: Hearing grossly intact. Ear canals and tympanic membranes are within normal limits. MOUTH: Oropharynx within normal limits. NECK: Supple, trachea is midline, no adenopathy, no JVD, no carotid bruit, no c- spine tenderness, neck with full ROM. CHEST: Symmetric, no tenderness at palpation LUNGS: Clear to auscultation bilaterally. No wheezing or crackles. CVS: Regular rate and rhythm, S1 and S2 present, no murmurs or gallops appreciated. ABDOMEN: Soft, non-tender. No signs of distention. No rebound no guarding, and no masses palpated. Bowel sounds are normal. EXTREMITIES: FROM in all major joints, no edema, no cyanosis or clubbing. NEURO: Alert and oriented x 3. No acute neurological deficits. Speech is normal and follows commands. SKIN: Dry and warm Rectal Exam: Normal sphincter tone. No external hemorrhoids. No gross blood. Triage Information Reviewed: Yes Vital Signs On Initial Exam: Initial Vitals Temp Pulse Resp BP Pulse Ox 97.7 F 111 20 97/55 91 01/03/17 07:23 01/03/17 07:23 01/03/17 07:23 01/03/17 07:23 01/03/17 07:23 Vital Signs Reviewed: Yes Diagnostics - Vital Signs Vital Signs Temp Pulse Resp BP Pulse Ox 01/03/17 07:23 97.7 F 111 20 97/55 91 - Laboratory Lab Results: Lab Results 01/03/17 01/03/17 01/03/17 Range/Units 07:35 07:35 07:35 WBC 25.9 H (3.5-10.8) 10^3/ul RBC 3.59 L (4.0-5.4) 10^6/ul Hgb 11.1 L (14.0-18.0) g/dl Hct 35 L (42-52) % MCV 96 H (80-94) fL MCH 31 (27-31) pg MCHC 32 (31-36) g/dl RDW 20 H (10.5-15) % Plt Count 106 L (150-450) 10^3/ul MPV 12 H (7.4-10.4) um3 Immature Gran % (Auto) 10 H (0-9) % Neut % (Auto) 97.7 H (38-83) % Lymph % (Auto) 1.3 L (25-47) % Gates % (Auto) 0.6 L (1-9) % Eos % (Auto) 0 (0-6) % Baso % (Auto) 0.4 (0-2) % Absolute Neuts (auto) 25.3 H (1.5-7.7) 10^3/ul Absolute Lymphs (auto) 0.3 L (1.0-4.8) 10^3/ul Absolute Monos (auto) 0.1 (0-0.8) 10^3/ul Absolute Eos (auto) 0 (0-0.6) 10^3/ul Absolute Basos (auto) 0.1 (0-0.2) 10^3/ul Absolute Nucleated RBC 0.02 10^3/ul Neutrophils % 88 H (38-83) % Band Neutrophils % 10 H (0-8) % Lymphocytes % 1 L (25-47) % Eosinophils % 1 (0-6) % Nucleated RBC % 0.1 Normal RBC Morphology Not Reportable Hypochromasia 1+ Tear Drop Cells 1+ [place] Cells 1+ Elliptocytes 1+ Hem Pathologist Commnt Pending APTT (26.0-36.3) seconds Sodium 132 L (133-145) mmol/L Potassium TNP Chloride 101 (101-111) mmol/L Carbon Dioxide 23 (22-32) mmol/L Anion Gap 8 (2-11) mmol/L BUN 45 H (6-24) mg/dL Creatinine 0.92 (0.67-1.17) mg/dL Est GFR ( Amer) 100.8 (>60) Est GFR (Non-Af Amer) 78.4 (>60) BUN/Creatinine Ratio 48.9 H (8-20) Glucose 116 H (70-100) mg/dL Lactic Acid 1.5 (0.5-2.0) mmol/L Calcium 8.8 (8.6-10.3) mg/dL Total Bilirubin 1.30 H (0.2-1.0) mg/dL AST TNP ALT 13 (7-52) U/L Alkaline Phosphatase 66 (34-104) U/L C-Reactive Protein 110.77 H (< 5.00) mg/L B-Natriuretic Peptide ( - 100) pg/mL Total Protein 6.1 L (6.4-8.9) g/dL Albumin 2.9 L (3.2-5.2) g/dL Globulin 3.2 (2-4) g/dL Albumin/Globulin Ratio 0.9 L (1-3) Amylase 49 (29-103) U/L Lipase 36 (11.0-82.0) U/L Blood Type Antibody Screen 01/03/17 01/03/17 01/03/17 Range/Units 07:35 07:35 07:35 WBC (3.5-10.8) 10^3/ul RBC (4.0-5.4) 10^6/ul Hgb (14.0-18.0) g/dl Hct (42-52) % MCV (80-94) fL MCH (27-31) pg MCHC (31-36) g/dl RDW (10.5-15) % Plt Count (150-450) 10^3/ul MPV (7.4-10.4) um3 Immature Gran % (Auto) (0-9) % Neut % (Auto) (38-83) % Lymph % (Auto) (25-47) % Gates % (Auto) (1-9) % Eos % (Auto) (0-6) % Baso % (Auto) (0-2) % Absolute Neuts (auto) (1.5-7.7) 10^3/ul Absolute Lymphs (auto) (1.0-4.8) 10^3/ul Absolute Monos (auto) (0-0.8) 10^3/ul Absolute Eos (auto) (0-0.6) 10^3/ul Absolute Basos (auto) (0-0.2) 10^3/ul Absolute Nucleated RBC 10^3/ul Neutrophils % (38-83) % Band Neutrophils % (0-8) % Lymphocytes % (25-47) % Eosinophils % (0-6) % Nucleated RBC % Normal RBC Morphology Hypochromasia Tear Drop Cells [place] Cells Elliptocytes Hem Pathologist Commnt APTT 22.6 L (26.0-36.3) seconds Sodium (133-145) mmol/L Potassium Chloride (101-111) mmol/L Carbon Dioxide (22-32) mmol/L Anion Gap (2-11) mmol/L BUN (6-24) mg/dL Creatinine (0.67-1.17) mg/dL Est GFR ( Amer) (>60) Est GFR (Non-Af Amer) (>60) BUN/Creatinine Ratio (8-20) Glucose (70-100) mg/dL Lactic Acid (0.5-2.0) mmol/L Calcium (8.6-10.3) mg/dL Total Bilirubin (0.2-1.0) mg/dL AST ALT (7-52) U/L Alkaline Phosphatase (34-104) U/L C-Reactive Protein (< 5.00) mg/L B-Natriuretic Peptide 919 H ( - 100) pg/mL Total Protein (6.4-8.9) g/dL Albumin (3.2-5.2) g/dL Globulin (2-4) g/dL Albumin/Globulin Ratio (1-3) Amylase (29-103) U/L Lipase (11.0-82.0) U/L Blood Type A Positive Antibody Screen Negative Result Diagrams: 01/03/17 07:35 01/03/17 10:49 Lab Statement: Any lab studies that have been ordered have been reviewed, and results considered in the medical decision making process. - Radiology XR Abdo Xray Interpretation: No Acute Changes - No evidence for obstruction Radiology Interpretation Completed By: Radiologist ELIZABETH Course/Dx - Course Assessment/Plan: The pt is an 86 y/o M presenting to the ED c/o intermittent episodes of black stool that began a week ago. Pt additionally c/o diarrhea, upset stomach. Pt denies abd pain, nausea, fever, chills, CP, SOB, and palpitations. He is currently on blood thinners. He had a colonoscopy 5 years ago. PMHx: GI bleed, CAD, lung CA, HTN, [place]. PSHx: CABG, appendectomy. Abdo XR reveals no evidence for obstruction. Test results show WBC 25.9, Hgb 11.1, Hct 35, and Platelet count 106. Bands are 10, Sodium 132, BUN 45, glucose 116, CRP 110, BNP 919, Stool occult blood negative. In the ED course the patient is slightly hypotensive of 97/55 and tachycardic ,therefore IV fluids were given and the BP normalized. The pts bloodwork shows leukocytosis. The patient has been having diarrhea. The Guiac is neagative, therefore I have low suspicion for a GI bleed however it may be infectious diarrhea. The patient cannot produce stool samples but the patient has leukocytosis and bandemia. Therefore, I discussed the case with Dr. Alcala, oncology, who recommends admission to the hospitalist services. I discussed care with Dr. Landry, hospitalist, who accepts the patient for admission. The patient is A&Ox3 and is hemodynamically stable. - Diagnoses Provider Diagnoses: Diarrhea, leukocytosis with bandemia, Dehydration, Weakness - Physician Notifications Discussed Care Of Patient With: Juan Alcala Time Discussed With Above Provider: 10:20 Instructed by Provider To: Other - Recommends that the patient be admitted. He will be admitted by Dr. Kevin Landry, hospitalist. Discharge - Discharge Plan Condition: Fair Disposition: ADMITTED TO [facility] The documentation as recorded by the Devonte mike Thomas accurately reflects the service I personally performed and the decisions made by , Mario Spain MD.
[2017-01-03] MEDS: Tamsulosin CAP* 0.4 MG PO SCH (20:31)
[2017-01-03] MEDS: metroNIDAZOLE IV 500 MG/100ML* 500 MG/100 ML BAG IVPB SCH (20:32)
[2017-01-03] MEDS: Morphine INJ* 2 MG/ML 1 ML SYRINGE IV PRN (21:27)
[2017-01-03] MEDS: CMCS: Melatonin (NF) 3 MG TAB PO PRN (21:30)
[2017-01-04] MEDS: NS 0.9% 1000 ML* 1,000 ML IV SCH ×2 (04:03→20:03)
[2017-01-04] MEDS: metroNIDAZOLE IV 500 MG/100ML* 500 MG/100 ML BAG IVPB SCH (04:04)
[2017-01-04 06:57] LABS: Hematocrit 26 % (42-52); Hemoglobin 8.7 g/dl (14.0-18.0); Mean Corpuscular HGB Conc 33 g/dl (31-36); Mean Corpuscular Hemoglobin 32 pg (27-31); Mean Corpuscular Volume 96 fL (80-94); Red Blood Count 2.74 10^6/ul (4.0-5.4); Red Cell Distribution Width 19 % (10.5-15); White Blood Count 10.2 10^3/ul (3.5-10.8)
[2017-01-04 07:14] LABS: BUN/Creatinine Ratio 41.6 (8-20); Calcium 7.8 mg/dL (8.6-10.3); Comments Flag Yes; EGFR African American 104.7 (>60); EGFR Non-African American 81.4 (>60)
[2017-01-04 07:15] LABS: Add Diff/Slide Review? Slide Review Added
[2017-01-04] MEDS: Allopurinol TAB* 300 MG PO SCH (08:49)
[2017-01-04] MEDS: ceFUROXime TAB(*) 250 MG PO SCH (08:49)
[2017-01-04] MEDS: Omeprazole CAP* 20 MG PO SCH ×2 (08:49→21:17)
[2017-01-04 10:53] LABS: Mean Platelet Volume 11 um3 (7.4-10.4)
[2017-01-04] MEDS: Enoxaparin(*) 40 MG/0.4 ML SYR SUBCUT SCH (11:11)
[2017-01-04] MEDS: Morphine INJ* 2 MG/ML 1 ML SYRINGE IV PRN ×4 (13:21→22:33)
[2017-01-04] MEDS: metroNIDAZOLE TAB* 250 MG PO SCH ×2 (14:40→21:16)
--- NOTE | 2017-01-04 16:31 | CONS ---
CONSULTATION REPORT: DATE OF CONSULT: 01/04/17 REQUESTING PROVIDER: KASSANDRA Price CONSULTING SERVICE: Infectious Disease. REASON FOR CONSULTATION: Diarrhea. IMPRESSION: 1. Recent antibiotic therapy for right ankle cellulitis which is significantly improved. 2. About a week of diarrhea, onset after Taxol chemotherapy, a bowel regimen for constipation, anti biotics which can cause loose stools or Clostridium difficile and Clostridium difficile was positive . He does not have particular urgency which is often a hallmark of Clostridium difficile diarrhea. On technicality, this diarrhea could be multifactorial, is apparently if the guaiac negative. Addit ional tests to figure out if this is a combination or just one of chemotherapy side effect, antibiot ic side effect or Clostridium difficile infection. We will treat for all. 3. Small cell lung cancer, on Paclitaxel treatment on 12/30/16. 4. Coronary artery disease. 5. Gout. RECOMMENDATIONS: 1. We will stop his Ceftin. 2. Change Flagyl to oral 500 mg 3 times a day for a 10-day course. We will follow his bowel moveme nt and gastrointestinal symptoms here. HISTORY OF PRESENT ILLNESS: Mr. Mcgregor is an 86-year-old man, recently admitted with right ankle melissa n and swelling, which is resolved with initially IV antibiotics and then switched to oral cefdinir f or the last 10 days. He is able to bear weight and has no redness or pain there. He was constipate d possibly from narcotic pain medications and so last week he had a bowel regimen prescribed by his primary doctor which he started taking last Wednesday. He also had Taxol therapy last week which usua lly gives him frequent loose liquid stools. He has had some abdominal bloating and mild nausea off and on, decreased appetite. He is to continue his oral antibiotics. He had stool every time he uri nates which is usually liquid, sometimes he feels slight urgency. He came into the hospital yesterd ay with white count of 25,000. He was started on IV Flagyl. C. diff test was sent and it was posit zoila. A guaiac test was sent and was negative. Today, his white blood cell count is 10,000. He is still having a few liquid stools every time he urinates. He has had some liquids by mouth today. He does not feel hungry. No fevers. His stomach is less painful, still a bit queasy. He has not had C. diff infection in the past. PAST MEDICAL HISTORY: 1. Small cell lung cancer, on Paclitaxel. 2. Benign prostatic hypertrophy. 3. Coronary artery disease. 4. Hypertension. 5. Hyperlipidemia. 6. Anemia. 7. Gout. MEDICATIONS: 1. Allopurinol. 2. Lipitor. 3. Calcium carbonate. 4. Metronidazole 500 mg IV every 8 hours. 5. Tamsulosin. 6. Pantoprazole. 7. Zofran. 8. Ceftin 500 mg by mouth twice daily. ALLERGIES: No known drug allergies. FAMILY HISTORY: Father with renal cell cancer. Mother had a brain tumor. SOCIAL HISTORY: Lives in [place]. He is here with his daughter. There is no sick contact or travel . REVIEW OF SYSTEMS: All negative to full review of systems except as noted above. PHYSICAL EXAM: Vital Signs: Temperature 37, heart rate 100, respiratory rate 18, blood pressure 11 6/60, O2 sat 92% on room air. General: He is awake, not in distress. Neurologic: He is oriented x3. Follows all commands. HEENT: There is no conjunctival hemorrhage. Oropharynx without lesions . Neck: Supple without nuchal rigidity. Lymph Nodes: There is no cervical, inguinal, axillary or epitrochlear lymphadenopathy. Heart: Irregular with a 2/6 systolic murmur. Tachycardic. Lungs: Clear to auscultation bilaterally. Abdomen: Soft. Mildly distended with bowel sounds present. Th ere is no rebound. Skin: There is no rash or splinter hemorrhages. Musculoskeletal: No spine ten derness to palpation. There is no joint synovitis. LABORATORY DATA: White blood cell count 10, hemoglobin 8, platelets 66. Creatinine 0.9. BNP was 90 0. CRP 110. C. diff positive. Fecal lactoferrin positive. Please see impressions and recommendations outlined above, which I have discussed with KASSANDRA Palma. Thank you for asking me to see Mr. Mcgregor in consultation. [id number]/[facility] #: [id number]
[2017-01-04] MEDS: Atorvastatin* 10 MG TAB PO SCH (17:38)
[2017-01-04] MEDS: Ondansetron TAB* 4 MG PO PRN (20:00)
[2017-01-04] MEDS: Tamsulosin CAP* 0.4 MG PO SCH (21:17)
[2017-01-04] MEDS: CMCS: Melatonin (NF) 3 MG TAB PO PRN (22:32)
[2017-01-04] MEDS: Zolpidem TAB* 5 MG PO PRN (22:33)
[2017-01-05 06:16] LABS: Hematocrit 26 % (42-52); Hemoglobin 8.4 g/dl (14.0-18.0); Mean Corpuscular HGB Conc 32 g/dl (31-36); Mean Corpuscular Hemoglobin 31 pg (27-31); Mean Corpuscular Volume 96 fL (80-94); Mean Platelet Volume 11 um3 (7.4-10.4); Red Blood Count 2.72 10^6/ul (4.0-5.4); Red Cell Distribution Width 19 % (10.5-15); White Blood Count 3.7 10^3/ul (3.5-10.8)
[2017-01-05 06:17] LABS: Add Diff/Slide Review? Slide Review Added; Comments Flag Yes
[2017-01-05 06:18] LABS: BUN/Creatinine Ratio 38.2 (8-20); Calcium 7.6 mg/dL (8.6-10.3); EGFR African American 104.7 (>60); EGFR Non-African American 81.4 (>60); Potassium 3.8 mmol/L (3.5-5.0)
[2017-01-05] MEDS: NS 0.9% 1000 ML* 1,000 ML IV SCH ×2 (07:29→17:39)
[2017-01-05] MEDS: Enoxaparin(*) 40 MG/0.4 ML SYR SUBCUT SCH (09:52)
[2017-01-05] MEDS: metroNIDAZOLE TAB* 250 MG PO SCH ×3 (09:52→20:42)
[2017-01-05] MEDS: Omeprazole CAP* 20 MG PO SCH ×2 (09:52→20:42)
[2017-01-05] MEDS: Allopurinol TAB* 300 MG PO SCH (09:53)
[2017-01-05] MEDS: Ondansetron TAB* 4 MG PO PRN (14:56)
[2017-01-05] MEDS: Morphine INJ* 2 MG/ML 1 ML SYRINGE IV PRN ×3 (15:03→20:42)
--- NOTE | 2017-01-05 16:13 | PN ---
Progress Note - Progress Note Date of Service: 01/05/17 SOAP: Subjective: CC: diarrhea HPI: 86 yo man on antibiotics for recent right ankle infection and chemotherapy for cancer now with diarrhea. Feels like post chemo diarrhea he sometimes gets but more severe. [place] better this morning, now has malaise and stomach feels unsettled, no nausea or vomiting, last BM was an hour ago, passing flatus. Had a few loose stools today. Objective: [] Vital Signs Temp 36.8 C 01/05/17 07:43 Pulse 103 01/05/17 07:43 Resp 16 01/05/17 15:03 BP 124/56 01/05/17 07:43 Pulse Ox 93 01/05/17 07:43 Intake & Output 01/04/17 01/05/17 01/05/17 18:59 06:59 18:59 Intake Total 50 3376 771 Balance 50 3376 771 Intake: IV Fluids 2906 451 NS (0.9%) 2906 451 Oral 50 470 320 Other: Estimated Void Small Medium # Bowel Movements 1 Estimated Stool Amount Small Small # Voids 1 2 Gen:awake, no distress Neuro:Ox3 HEENT:PERRL, MMM Neck:supple Heart:RRR no murmur Lungs:CTA BL Abd:+BS mildly distended, soft, non tender Skin: no rash MSK: R ankle trace edema no erythema, warmth or tenderness Laboratory Results - last 24 hr 01/05/17 01/05/17 05:56 05:56 WBC 3.7 RBC 2.72 L Hgb 8.4 L Hct 26 L MCV 96 H MCH 31 MCHC 32 RDW 19 H Plt Count 75 L D MPV 11 H Neut % (Auto) 78.2 Lymph % (Auto) 13.8 L [place] % (Auto) 1.5 Eos % (Auto) 6.4 H Baso % (Auto) 0.1 Absolute Neuts (auto) 2.9 Absolute Lymphs (auto) 0.5 L Absolute Monos (auto) 0.1 Absolute Eos (auto) 0.2 Absolute Basos (auto) 0 Absolute Nucleated RBC 0 Nucleated RBC % 0.1 Sodium 133 Potassium 3.8 Chloride 108 Carbon Dioxide 23 Anion Gap 2 BUN 34 H Creatinine 0.89 Est GFR ( Amer) 104.7 Est GFR (Non-Af Amer) 81.4 BUN/Creatinine Ratio 38.2 H Glucose 108 H Calcium 7.6 L Assessment: 1. diarrhea, multifactorial; Cdif, chemotherapy, abx associated 2. Cdif 3. lung cancer 4. ongoing chemotherapy Plan: 1. continue flagyl 500 mg po tid day 07/28 2. Xray abd if more distended or decr stool output
[2017-01-05] MEDS: Atorvastatin* 10 MG TAB PO SCH (17:24)
[2017-01-05] MEDS: Tamsulosin CAP* 0.4 MG PO SCH (20:42)
[2017-01-05] MEDS: CMCS: Melatonin (NF) 3 MG TAB PO PRN (22:25)
[2017-01-05] MEDS: Zolpidem TAB* 5 MG PO PRN (22:25)
[2017-01-06] MEDS: NS 0.9% 1000 ML* 1,000 ML IV SCH (03:43)
[2017-01-06] MEDS: Allopurinol TAB* 300 MG PO SCH (08:22)
[2017-01-06] MEDS: Omeprazole CAP* 20 MG PO SCH ×2 (08:22→19:46)
[2017-01-06] MEDS: metroNIDAZOLE TAB* 250 MG PO SCH ×3 (08:22→19:46)
[2017-01-06] MEDS: Morphine INJ* 2 MG/ML 1 ML SYRINGE IV PRN ×3 (08:37→19:44)
--- NOTE | 2017-01-06 09:36 | PN ---
Progress Note - Progress Note Date of Service: 01/06/17 SOAP: Subjective: CC: diarrhea HPI: 86 yo man on antibiotics for recent right ankle infection and chemotherapy for cancer now with diarrhea. Feels like post chemo diarrhea he sometimes gets but more severe. Abdomen feels better, no fever, stools more formed. No rash. Objective: [] Vital Signs Temp 36.7 C 01/06/17 07:37 Pulse 94 01/06/17 07:37 Resp 18 01/06/17 08:37 BP 114/53 01/06/17 07:37 Pulse Ox 95 01/06/17 07:37 Intake & Output 01/05/17 01/06/17 01/06/17 18:59 06:59 18:59 Intake Total 771 400 Balance 771 400 Intake: IV Fluids 451 NS (0.9%) 451 Oral 320 400 Other: Estimated Void Medium # Bowel Movements 1 1 Estimated Stool Amount Small Small # Voids 2 2 Gen:awake, no distress Neuro:Ox3 HEENT:PERRL, MMM Neck:supple Heart:RRR no murmur Lungs:CTA BL Abd:+BS mildly distended, soft, non tender Skin: no rash MSK: R ankle trace edema no erythema, warmth or tenderness Assessment: 1. diarrhea, multifactorial; Cdif, chemotherapy, abx associated, slowly improving 2. Cdif 3. lung cancer 4. ongoing chemotherapy Plan: 1. continue flagyl 500 mg po tid day 3, continue same abx
[2017-01-06] MEDS ORDERED: Acetaminophen TAB* 325 MG PO PRN (10:51)
[2017-01-06] MEDS ORDERED: Simethicone CHEW TAB* 80 MG PO PRN (10:51)
[2017-01-06] MEDS: Enoxaparin(*) 40 MG/0.4 ML SYR SUBCUT SCH (11:49)
[2017-01-06] MEDS: Calcium Carbonate CHEW TAB* 500 MG (TUMS) PO PRN ×2 (15:08→19:53)
[2017-01-06] MEDS: Ondansetron TAB* 4 MG PO PRN (16:03)
--- NOTE | 2017-01-06 18:59 | CONS ---
CC: Lucina Marques MD* PALLIATIVE CARE CONSULTATION: DATE OF CONSULT: 01/06/17 PRIMARY CARE PHYSICIAN: Lucina Marques MD REFERRING PHYSICIAN: Sp Abdullahi MD HOSPITAL COURSE: This is an 86-year-old male with a past medical history of recurrent metastatic small cell lung cancer, who has been on paclitaxel, who presented to the emergency room on the with weakness and diarrhea, found to have C. diff. The patient was admitted by the hospitalist service at that time and oncology service took over his care. The patient was started on Taxol initially and developed neutropenic fever with cellulitis and he was started on a lower dose of Taxol and now he is readmitted for C. diff. Dr. Abdullahi feels that he is no longer a candidate for any further treatment due to the complications that he has received with the chemotherapy and is now eligible for hospice. On my encounter, the patient mainly keeps his eyes closed during our interaction. His daughter does come in at the end of our interaction. He states he feels a lot of abdominal pressure and bloating, diarrhea persists, but it has improved. He denies any shortness of breath. He has had some weight loss, he is unable to quantify how much and he has had a significant decrease in his appetite. He is insistent that he wants to go back home with hospice. He states that he can do stairs fine and he has no issues at home. He has no family locally, but he states he does have friends that come in and check on him. He denies any nausea or vomiting. No chest pain. Otherwise remaining review of systems is negative. His daughter pulled me outside the room explaining her concerns about him being at home and that she knows he is going need more services and that she lives in [place] and will be able to be there on the weekends, but during the week she is concerned about his safety and care. I did speak about having Physical Therapy evaluate him to determine a home safety evaluation. When I did speak with the patient regarding enrolling in hospice, he seemed to be complacent about this decision and stated that there did not seem to be an alternative option for him. He did confirm that he is a DNR/DNI with comfort measures. PAST MEDICAL HISTORY: 1. Recurrent metastatic small cell lung cancer, was on chemotherapy, complicated by neutropenic fever and cellulitis, and now with C. diff colitis. 2. 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 3. BPH. 4. CAD. 5. Hyperlipidemia. 6. Hypertension. 7. Chronic anemia. 8. History of DVT in the right leg, June 2016. 9. History of gout. INPATIENT MEDICATIONS: 1. Lipitor 10 mg p.o. daily. 2. Lovenox 40 mg subcu daily. 3. Normal saline 100 cc an hour. 4. Tylenol 650 mg every 6 hours as needed. 5. Allopurinol 300 mg daily. 6. Calcium carbonate 500 mg every 2 hours as needed. 7. Melatonin 3 mg at bedtime as needed. 8. Morphine 1 mg every 2 hours as needed. 9. Omeprazole 20 mg p.o. b.i.d. 10. Zofran 4 mg every 4 hours as needed. 11. Simethicone chew 80 mg p.o. q.6 hours as needed. 12. Tamsulosin 0.8 mg p.o. at bedtime. 13. Ambien 5 mg p.o. at bedtime. 14. Metronidazole 500 mg p.o. t.i.d. ALLERGIES: No known drug allergies. FAMILY HISTORY: His father at age 64 from [place]. Mother in her 70s from a brain tumor. His son at age 38 from presumed [place]. SOCIAL HISTORY: As mentioned, the patient lives alone. He ambulates with a walker. His daughter, Christa, who lives in [place], is his healthcare proxy. His MOLST form confirmed and completed, initially was a DNI, completed the second page with DNI and comfort measures only. He is a former smoker and no alcohol or illicit drug use. REVIEW OF SYSTEMS: Fourteen-point review of systems as mentioned, positive pertinent as mentioned in the HPI, otherwise negative. PHYSICAL EXAM: Vitals: Temp 98.4, pulse rate 94, respiratory rate 16, oxygen saturation 95% on room air, blood pressure 114/53. General: In no acute distress, resting comfortably with his eyes closed for most of the encounter. Head is normocephalic. Eyes: Pupils are equal and reactive, anicteric. Oropharynx: Mucous membranes moist. Neck: Supple. No lymphadenopathy. Cardiac: Regular rate and rhythm. Harsh systolic murmur, more prominent at the right sternal base. Respiratory: Diminished breath sounds. No wheeze, rhonchi, or rales. Abdomen: Hypoactive bowel sounds. Soft, [id number] distention and some diffuse tenderness. No rebound, no guarding. Extremities: No clubbing, cyanosis, or edema. Neurological: Alert and oriented x3. No focal neurologic deficits. LABORATORY DATA: White count 3.7, hemoglobin 8.4, hematocrit 26, platelets 75. Sodium 133, potassium 3.8, chloride 108, bicarb 23, BUN 34. ASSESSMENT AND PLAN: This is an 86-year-old male with the past medical history of metastatic recurrent small cell lung cancer, no longer a candidate for chemotherapy, who is now eligible for hospice. Readmitted to the hospital for Clostridium difficile colitis. I did place a Physical Therapy consult in for my concern about his safety at home and they did evaluate and feel that he needs to have 24-hour supervision. I did relay this to Dr. Abdullahi and Shayla, our social media project manager, who is going to speak with the daughter and the patient regarding 24-hour care at home versus potentially a hospice residence placement. In the interim, the patient does want comfort care, I did stop his IV fluids, Lovenox, and Lipitor. He has no pain at this time. Thank you for this consultation. We will follow along with you. PATIENT TIME: Greater than 90 minutes was spent doing consultation, more than half the time was spent in direct patient contact. [id number]/[facility] #: [id number] ZAC
[2017-01-06] MEDS: Tamsulosin CAP* 0.4 MG PO SCH (19:46)
[2017-01-06] MEDS: Zolpidem TAB* 5 MG PO PRN (21:47)
[2017-01-06] MEDS: CMCS: Melatonin (NF) 3 MG TAB PO PRN (23:51)
[2017-01-07] MEDS: Calcium Carbonate CHEW TAB* 500 MG (TUMS) PO PRN ×2 (08:40→15:39)
[2017-01-07] MEDS: Allopurinol TAB* 300 MG PO SCH (08:40)
[2017-01-07] MEDS: metroNIDAZOLE TAB* 250 MG PO SCH ×3 (08:40→21:02)
[2017-01-07] MEDS: Ondansetron TAB* 4 MG PO PRN ×3 (08:40→21:02)
[2017-01-07] MEDS: Omeprazole CAP* 20 MG PO SCH ×2 (08:40→21:02)
[2017-01-07] MEDS: Morphine INJ* 2 MG/ML 1 ML SYRINGE IV PRN ×4 (11:42→21:02)
[2017-01-07] MEDS: Tamsulosin CAP* 0.4 MG PO SCH (21:02)
[2017-01-07] MEDS: CMCS: Melatonin (NF) 3 MG TAB PO PRN (21:07)
[2017-01-07] MEDS: Zolpidem TAB* 5 MG PO PRN (21:31)
[2017-01-08] MEDS: Morphine INJ* 2 MG/ML 1 ML SYRINGE IV PRN (07:36)
[2017-01-08] MEDS: metroNIDAZOLE TAB* 250 MG PO SCH (07:37)
[2017-01-08] MEDS: Omeprazole CAP* 20 MG PO SCH (07:37)
[2017-01-08] MEDS: Allopurinol TAB* 300 MG PO SCH (07:37)
[2017-01-08] MEDS: Ondansetron TAB* 4 MG PO PRN (07:38)
[2017-01-08 08:25] VITALS: BP 122/53
[2017-01-08] MEDS ORDERED: Morphine ORAL.SOLN 10 mg* 2 MG/ML UDC 5 ml PO ONE (10:30)
--- NOTE | 2017-01-09 05:08 | DS ---
CC: Dr. Guajardo; Dr. Marques * DISCHARGE SUMMARY: DATE OF ADMISSION: 01/03/17 DATE OF DISCHARGE: 01/08/17 ATTENDING PHYSICIAN: Dr. Alcala * (DICTATED BY HAMMAD MCKINNON NP) DISCHARGE DIAGNOSES: 1. Metastatic small cell lung cancer: Recently recurred, initial diagnosis 9 months ago, transition to hospice. 2. Clostridium difficile: Improving slowly on Flagyl, day 5 of 14 today. 3. Cellulitis: Resolving on Ceftin. 4. Hypertension: Stable. 5. Benign prostatic hypertrophy: Stable with tamsulosin, will continue. DISCHARGE MEDICATIONS: 1. Acetaminophen 650 mg p.o. q.6 hours p.r.n. pain. 2. Zolpidem 5 mg p.o. q.h.s. p.r.n. insomnia. 3. Flagyl 500 mg p.o. t.i.d., total 14 days. 4. Lorazepam 0.5 mg p.o. q.4 hours p.r.n. anxiety/agitation/insomnia. 5. Morphine oral concentrate 5 mg p.o. q.2 hours p.r.n. pain/shortness of breath. 6. Tamsulosin 0.8 mg p.o. q.h.s. 7. Ondansetron 4 mg p.o. q.4 hours p.r.n. nausea, vomiting. 8. Omeprazole 20 mg p.o. b.i.d. 9. Tums 500 mg p.o. q.2 hours p.r.n. bloating. 10. Dexamethasone 2 mg p.o. daily. HOSPITAL COURSE: Please see admission note for full H and P; however, briefly, Mr. Mcgregor is well known to our service due to his unfortunate diagnosis of advanced small cell lung cancer diagnosed approximately 9 months ago. He was treated previously with chemotherapy with multiple side effects and ultimately _ monitoring with good tumor response. He recurred after approximately 5 months of therapy in November and was treated with paclitaxel starting on 12/03/16. Ultimately, he has only received 2 doses due to multiple toxicities as well. On this admission, Mr. Mcgregor presented to the ER with weakness, diarrhea and black stools. He was admitted with dehydration and workup for the diarrhea. Prior to the admission, he had been placed on long-term antibiotics due to cellulitis of his ankle, therefore, C. diff was part of the differential. His initial C. diff toxin came back positive on 01/03/17 in the afternoon and he was stated on Flagyl. Dr. Arias was consulted on 01/04/17 with recommendation to stop the Ceftin and change Flagyl. Due to Mr. Mcgregor's poor tolerance and multiple toxicities with chemotherapy during his admission, the Oncology team did request a consultation with palliative care and he was seen by Dr. Anderson on 01/06/17. At this time, Dr. Anderson did order a Physical Therapy consult due to our concerns for safety independently and it was felt that the patient required 24-hour care. Ultimately, he was felt to be an excellent candidate for hospice and on conversation with Dr. Abdullahi on the same day with the patient and his daughter, a decision was made for focus on quality of life. The patient did sign a MOLST form and agreed to consideration for admission to the hospice residence. At this point, Mr. Mcgregor continues to show improvement with decreasing diarrhea, though with still some abdominal pain, but eating well. He states understanding of the plan of care, though is sad to be unable to go home. He denies need for further interventions. All questions were answered and he is prepared for his transfer to the hospice residence. No further followup is required. TIME SPENT: Greater than 40 minutes with greater than 50% spent [id number] counseling. HAMMAD MCKINNON NP [id number]/[facility] #: [id number] ZAC
== END 2017-01-08 10:45 | disposition hospice, inpatient (51) | DRG 372 ==
LOC: ED 07:15 → MED 10:48 → OBSVTOIN 01-04 10:30
PROVIDERS: ADMIT Hospitalist; ATTEND Internal Medicine Hematology & Oncology
DX: A04.7 Enterocolitis due to Clostridium difficile (principal); C34.90 Malignant neoplasm of unspecified part of unspecified bronchus or lung; C79.9 Secondary malignant neoplasm of unspecified site; L03.119 Cellulitis of unspecified part of limb; E86.0 Dehydration; Z95.1 Presence of aortocoronary bypass graft; I10 Essential (primary) hypertension; E78.5 Hyperlipidemia, unspecified; F32.9 Major depressive disorder, single episode, unspecified; N40.0 Benign prostatic hyperplasia without lower urinary tract symptoms; I25.10 Atherosclerotic heart disease of native coronary artery without angina pectoris; M10.9 Gout, unspecified; K21.9 Gastro-esophageal reflux disease without esophagitis; M19.90 Unspecified osteoarthritis, unspecified site; H26.9 Unspecified cataract; Z66 Do not resuscitate; Z51.5 Encounter for palliative care; Z92.21 Personal history of antineoplastic chemotherapy; Z88.8 Allergy status to other drugs, medicaments and biological substances; Z80.51 Family history of malignant neoplasm of kidney; Z80.8 Family history of malignant neoplasm of other organs or systems; Z87.891 Personal history of nicotine dependence; I25.2 Old myocardial infarction; Z87.01 Personal history of pneumonia (recurrent); Z85.828 Personal history of other malignant neoplasm of skin; Z82.49 Family history of ischemic heart disease and other diseases of the circulatory system; Z86.718 Personal history of other venous thrombosis and embolism
CPT/HCPCS: 36415; 74020; 80048; 80053; 82150; 82272; 83605; 83630; 83690; 83880; 85025; 85060; 85730; 86140; 86850; 86900; 86901; 87045; 87046; 87077; 87493; 87899; 99232; 99239; A9270-GY; G0378; J1650; J2270